=== PATIENT | female | born 1935 | race Caucasian/White ===

== ENCOUNTER 2020-02-02 23:31 | Inpatient (IN) | payer MEDICARE, OTHER, SELFPAY ==
[2020-02-02 23:33] VITALS: BP 106/78; PULSE 101; RESP 24; TEMP 37.1; O2SAT 93; BMI 34.4
--- NOTE | 2020-02-02 23:37 | XRR_ITS ---
PROCEDURE INFORMATION: Exam: XR Chest, 1 View Exam date and time: 02/02/2020 11:47 PM Age: 84 years old Clinical indication: Cough and shortness of breath; Chest pain; Additional info: Cp TECHNIQUE: Imaging protocol: XR of the chest Views: 1 view. COMPARISON: No relevant prior studies available. FINDINGS: Lungs: Pulmonary vasculature is engorged. Pleural space: Small right pleural effusion. Heart/Mediastinum: The left heart border and diaphragm are completely is obscured which may be due to consolidation and/or pleural effusion. Bones/joints: Unremarkable. XR/XR chest 1V portable [id number] IMPRESSION: 1. Left basilar opacity could be due to consolidation and/or pleural fluid. 2. Small right effusion. 3. Vascular congestion
--- NOTE | 2020-02-02 23:37 | ECG_ITS ---
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 Measurements Intervals [place] Rate: 97 P: 63 TN: 188 QRS: -39 QRSD: 138 T: 51 QT: 370 QTc: 471 Interpretive Statements SINUS RHYTHM LEFT AXIS DEVIATION [QRS AXIS < -30] INTRAVENTRICULAR CONDUCTION DELAY [130+ ms QRS DURATION] POSSIBLE ANTERIOR MYOCARDIAL INFARCTION , OF INDETERMINATE AGE [30 ms Q WAVE IN V3/V4, OR R < 0.2 mV IN V4] No previous ECG available for comparison Electronically Signed On 02-03-2020 20:27:52 CDT by Sonal Patrick M.D. [id number]
--- NOTE | 2020-02-02 23:38 | ED_ITS ---
HPI - Chest Pain General: Chief Complaint: Shortness of Breath/Dyspnea Stated Complaint: chest pain Time Seen by Provider: 02/02/20 23:36 Source: patient and EMS Limitations: no limitations History of Present Illness: HPI narrative: 84-year-old female is here [facility]. She has been complaining of a sharp chest pain all day long with some shortness of breath. Patient's pulse ox is 90% here on room air. Patient is tachypneic. States she feels improved currently and has minimal pain she rates 2 out of 10. She denies any cough or fever or any recent illness. Denies any vomiting or diarrhea. MD complaint: chest pain Associated symptoms: Reports dyspnea; Deny abdominal pain, fever(s), nausea or vomiting Review of Systems Const: Denies: fever(s), chills, body aches or change in appetite Eyes: Denies: blurry vision or eye discomfort ENMT: Denies: throat pain or dental pain Card: Reports: chest pain Resp: Reports: dyspnea GI: Denies: abdominal pain, nausea, vomiting or diarrhea : Denies: dysuria Musc: Denies: neck pain or back pain Skin/Breast: Denies: rash Neuro: Denies: headache(s) Psych: Denies: depression Yaya/Lymph: Denies: easy bruising All/Imm: Denies: urticaria PFSH ED PFSH: Medical History Adult onset hypothyroidism Blindness, 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 Diabetes mellitus with hyperglycemia, without long-term current use of insulin Essential hypertension Heart murmur Lives in assisted living facility Memory deficit Surgical History No significant past surgical history Family History Daughter Cancer Lung Social History Smoking and tobacco status: never smoked Housing: Assisted Living Facility Current gender identity: Female Physical Exam Const: COMMON NORMALS: no acute distress, patient oriented x3 and healthy appearing HENMT: COMMON NORMALS: normocephalic and atraumatic HEAD & SCALP: normocephalic and atraumatic Eye: COMMON NORMALS: Equal, round and reactive pupils present and EOMs intact bilaterally PUPIL: Yes Equal, round and reactive pupils present Neck/C-Spine: COMMON NORMALS: full ROM and supple Chest: COMMONS NORMALS: normal inspection of the chest and normal palpation of entire chest wall Resp: COMMON NORMALS: No retractions and No use of accessory muscles EFFORT & INSPECTION: Yes tachypneic AUSCULTATION: wheezes Cardio: COMMON NORMALS: regular rate, regular rhythm and No murmurs present (Cardio) RATE: regular rate RHYTHM: regular rhythm GI: COMMON NORMALS: Normal to inspection, nondistended, normoactive bowel sounds present, Soft to palpation, non-tender and no masses PALPATION: Yes Soft to palpation Extremity: COMMON NORMALS: normal to inspection and full ROM Neuro: COMMON NORMALS: patient oriented x3, moves all extremities and no focal motor deficits Psych: COMMON NORMALS: mental status grossly normal, Normal thought process present and cooperative THOUGHT PROCESS: Normal thought process present Skin: COMMON NORMALS: no rashes or lesions noted and no wounds GENERAL SKIN EXAM: no rashes or lesions noted Course Vital Signs: Vital signs: Vital Signs Temperature 98.7 F 02/02/20 23:33 Pulse Rate 88 02/02/20 23:59 Respiratory Rate 18 02/02/20 23:50 Blood Pressure 106/78 02/02/20 23:33 Pulse Oximetry 96 02/02/20 23:59 MDM - Chest Pain MDM Narrative: Medical decision making narrative: Margarita presents here with shortness of breath along with chest pain. Her chest pain is resolved and she has no signs of acute coronary syndrome. Patient does have pulmonary edema and pleural effusions on CT and elevated BNP. She has swelling in extremities with likely CHF exacerbation. I spoke to hospitalist and will admit. Patient has been stable while here. Lab Data: Labs: Lab Results 02/03/20 02/03/20 02/03/20 Range/Units 00:01 00:01 00:01 WBC 7.0 (4.0-10.0) 10^3/ uL RBC 3.77 L (4.1-5.3) 10^6/u L Hgb 11.4 L (11.5-15.3) g/dL Hct 35.0 L (37.0-47.0) % MCV 92.8 (81-99) fL MCH 30.2 (28.0-34.0) pg MCHC 32.6 (30.0-36.0) g/dL RDW 14.2 (12.1-15.1) % Plt Count 206 (130-400) 10^3/c mm MPV 10.8 H (7.4-10.4) fL Neut % (Auto) 61.7 % Lymph % (Auto) 26.0 % Churchill % (Auto) 7.7 % Eos % (Auto) 3.7 % Baso % (Auto) 0.6 % Neut # (Auto) 4.31 (1.8-7.7) 10^3/u L Lymph # (Auto) 1.8 (0.8-4.8) 10^3/u L Churchill # (Auto) 0.5 (0.2-0.9) 10^3/u L Eos # (Auto) 0.3 (0.0-0.8) 10^3/u L Baso # (Auto) 0.0 (0.0-0.1) 10^3/u L Nucleated RBC % (a uto) 0 % Nucleated RBCs # 0.0 /100WBC D-Dimer 1.26 H (0-0.59) ug/mIFE U Sodium 130 L (136-145) mmol/L Potassium 5.0 (3.5-5.1) mmol/L Chloride 100 (98-107) mmol/L Carbon Dioxide 19 L (22-29) mmol/L Anion Gap 16.0 (5-19) BUN 22 (8-23) mg/dL Creatinine 1.1 H (0.5-0.9) mg/dL GFR Calculation Not Reportable Glucose 133 H (65-115) mg/dL Calculated Osmolal ity 275 L (285-295) mOsm/k g Lactate (0.5-2.2) mmol/L Calcium 9.2 (8.5-10.5) mg/dL Total Bilirubin 0.5 (0.15-1.2) mg/dL AST 14 (0-32) U/L ALT 20 (0-33) U/L Alkaline Phosphata se 49 (35-105) IU/L Troponin T Baselin e (0-10) ng/L NT-Pro-B Natriuret Pep 1540 H (0-450) pg/mL Total Protein 6.7 (6.6-8.7) g/dL Albumin 3.6 (3.5-5.2) g/dL Globulin 3.1 (1.3-4.6) g/dL SARS-CoV-2 Ag (Rap id) (Negative) 02/03/20 02/03/20 02/03/20 Range/Units 00:01 00:01 00:01 WBC (4.0-10.0) 10^3/ uL RBC (4.1-5.3) 10^6/u L Hgb (11.5-15.3) g/dL Hct (37.0-47.0) % MCV (81-99) fL MCH (28.0-34.0) pg MCHC (30.0-36.0) g/dL RDW (12.1-15.1) % Plt Count (130-400) 10^3/c mm MPV (7.4-10.4) fL Neut % (Auto) % Lymph % (Auto) % Churchill % (Auto) % Eos % (Auto) % Baso % (Auto) % Neut # (Auto) (1.8-7.7) 10^3/u L Lymph # (Auto) (0.8-4.8) 10^3/u L Churchill # (Auto) (0.2-0.9) 10^3/u L Eos # (Auto) (0.0-0.8) 10^3/u L Baso # (Auto) (0.0-0.1) 10^3/u L Nucleated RBC % (a uto) % Nucleated RBCs # /100WBC D-Dimer (0-0.59) ug/mIFE U Sodium (136-145) mmol/L Potassium (3.5-5.1) mmol/L Chloride (98-107) mmol/L Carbon Dioxide (22-29) mmol/L Anion Gap (5-19) BUN (8-23) mg/dL Creatinine (0.5-0.9) mg/dL GFR Calculation Glucose (65-115) mg/dL Calculated Osmolal ity (285-295) mOsm/k g Lactate 0.9 (0.5-2.2) mmol/L Calcium (8.5-10.5) mg/dL Total Bilirubin (0.15-1.2) mg/dL AST (0-32) U/L ALT (0-33) U/L Alkaline Phosphata se (35-105) IU/L Troponin T Baselin e 14 H (0-10) ng/L NT-Pro-B Natriuret Pep (0-450) pg/mL Total Protein (6.6-8.7) g/dL Albumin (3.5-5.2) g/dL Globulin (1.3-4.6) g/dL SARS-CoV-2 Ag (Rap id) Negative (Negative) Imaging Data^: CT Chest: Radiologist's impression: [place] [address] CT Scan Report Signed Patient: Margarita Friedman Unit #: [id number] : 1935 Age/Sex: 84 / F ADM Date: 02/02/20 Loc: ER Room/Bed: Attending Dr: Ordering Provider/Ordering MD: Brionna Deluca MD Date of Service: 02/03/20 Procedure(s): CT angio chest PE protcl [id number] Accession Number(s): [id number] Report Number: [id number] PROCEDURE INFORMATION: Exam: CT Angiography Chest With Contrast Exam date and time: 02/03/2020 1:30 AM Age: 84 years old Clinical indication: Cough and shortness of breath; Chest pain; Type not specified; Additional info: SOB TECHNIQUE: Imaging protocol: Computed tomographic angiography of the chest with intravenous contrast. 3D rendering (Not supervised by radiologist): MIP and/or 3D reconstructed images were created by the technologist. Radiation optimization: All CT scans at this facility use at least one of these dose optimization techniques: automated exposure control; mA and/or kV adjustment per patient size (includes targeted exams where dose is matched to clinical indication); or iterative reconstruction. Contrast material: VISI; Contrast volume: 92 ml; Contrast route: INTRAVENOUS (IV); COMPARISON: CR XR chest 1V portable [id number] 02/02/2020 11:50 PM RADIATION DOSE METRICS: Total DLP (mGy-cm): 636.8 FINDINGS: Limitations: Motion on multiple slices. Pulmonary arteries: No central or segmental pulmonary embolus. Poor detail of the small pulmonary arteries. Aorta: Atherosclerosis. No thoracic aortic aneurysm or dissection. No aneurysm of the visualized abdominal aorta. Focal slight ectasia of the distal abdominal aorta. Thyroid: 2 small calcifications in the enlarged right lobe of the thyroid. Lungs: Collapse of the posterior wall of the trachea and right and left main bronchi on multiple slices. Areas of atelectasis in each posterior lung. Increased interstitial markings and patchy slight haziness in both lungs. Calcified granulomas in both lungs. Pleural space: [id number] right and mild left pleural effusions. No pneumothorax. Heart: Continued cardiomegaly. No pericardial effusion. 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 Mediastinal lipomatosis. Lymph nodes: Calcifications in some of the enlarged mediastinal and right hilar nodes and in some nonenlarged left hilar nodes. Gallbladder and bile ducts: Imaging of most of the abdomen showing a cholecystectomy. Pancreas: Fatty infiltration of the pancreas. Kidneys and ureters: Only a retroaortic left renal vein. Bones/joints: Old compression fractures. Degeneration of several discs. Increased kyphosis. Prominent geode in the right humeral head. Subchondral defects in the left glenoid. Soft tissues: Small calcifications in the breasts. CT/CT angio chest PE protcl [id number] IMPRESSION: 1. No large pulmonary embolus. Obscuration of small pulmonary arterial detail by motion artifacts. 2. Bilateral pleural effusions, lung findings likely representing pulmonary edema and cardiomegaly suggesting congestive failure. Areas of atelectasis in the lungs as well. Collapse of the posterior wall of the trachea and central bronchi on multiple slices. 3. Aberrant right subclavian artery extending posterior to the esophagus. Other findings detailed above. EKG Data^: EKG 1: Attestation: I personally reviewed and interpreted this EKG as follows: EKG interpretation date: 02/02/20 EKG interpretation time: 23:39 Interpretation: nsr no st or t wave abnormalities qrs 138 qtc 424 Discharge Plan Discharge Patient Disposition: Admitted As Inpatient Clinical Impression: Congestive heart failure Qualifiers: Heart failure type: unspecified Heart failure chronicity: acute on chronic Qualified Code(s): I50.9 - Heart failure, unspecified Condition: Stable Referrals: Adam Meléndez, [facility] [Primary Care Provider] - Coding Level of Care Code ED Meter Calibrator for Chg Fwd Exam Comprehensive
[2020-02-02] MEDS: albuterol 8 gm MDI 2 PUFF INHALATION (23:45)
[2020-02-02 23:50] VITALS: PULSE 86; RESP 18; O2SAT 93
[2020-02-02 23:59] VITALS: PULSE 88; O2SAT 96
[2020-02-03] VITALS (9 sets, daily range): BP systolic 90–113; BP diastolic 58–72; PULSE 82–101; RESP 18–30; TEMP 36.2–36.9; O2SAT 94–98
[2020-02-03] MEDS: dexamethasone 10 mg/mL INJ IVP (00:06)
[2020-02-03 00:20] LABS: Basophils % 0.6 %; Eosinophils # 0.3 10^3/uL (0.0-0.8); Eosinophils % 3.7 %; Hemoglobin 11.4 g/dL (11.5-15.3); Lymphocytes # 1.8 10^3/uL (0.8-4.8); Mean Corpuscular HGB Conc 32.6 g/dL (30.0-36.0); Mean Corpuscular Hemoglobin 30.2 pg (28.0-34.0); Mean Corpuscular Volume 92.8 fL (81-99); Mean Platelet Volume 10.8 fL (7.4-10.4); Monocytes # 0.5 10^3/uL (0.2-0.9); Monocytes % 7.7 %; Neutrophils # 4.31 10^3/uL (1.8-7.7); Neutrophils % 61.7 %; Nucleated Red Blood Cells % 0 %; Platelet Count 206 10^3/cmm (130-400); Red Blood Count 3.77 10^6/uL (4.1-5.3); Red Cell Distribution Width 14.2 % (12.1-15.1)
[2020-02-03 00:43] LABS: D Dimer 1.26 ug/mIFEU (0-0.59); Troponin(5th) Baseline 14 ng/L (0-10)
--- NOTE | 2020-02-03 00:45 | CTR_ITS ---
PROCEDURE INFORMATION: Exam: CT Angiography Chest With Contrast Exam date and time: 02/03/2020 1:30 AM Age: 84 years old Clinical indication: Cough and shortness of breath; Chest pain; Type not specified; Additional info: SOB TECHNIQUE: Imaging protocol: Computed tomographic angiography of the chest with intravenous contrast. 3D rendering (Not supervised by radiologist): MIP and/or 3D reconstructed images were created by the technologist. Radiation optimization: All CT scans at this facility use at least one of these dose optimization techniques: automated exposure control; mA and/or kV adjustment per patient size (includes targeted exams where dose is matched to clinical indication); or iterative reconstruction. Contrast material: VISI; Contrast volume: 92 ml; Contrast route: INTRAVENOUS (IV); COMPARISON: CR XR chest 1V portable [id number] 02/02/2020 11:50 PM RADIATION DOSE METRICS: Total DLP (mGy-cm): 636.8 FINDINGS: Limitations: Motion on multiple slices. Pulmonary arteries: No central or segmental pulmonary embolus. Poor detail of the small pulmonary arteries. Aorta: Atherosclerosis. No thoracic aortic aneurysm or dissection. No aneurysm of the visualized abdominal aorta. Focal slight ectasia of the distal abdominal aorta. Thyroid: 2 small calcifications in the enlarged right lobe of the thyroid. Lungs: Collapse of the posterior wall of the trachea and right and left main bronchi on multiple slices. Areas of atelectasis in each posterior lung. Increased interstitial markings and patchy slight haziness in both lungs. Calcified granulomas in both lungs. Pleural space: Nxzl-vw-mabywscx right and mild left pleural effusions. No pneumothorax. Heart: Continued cardiomegaly. No pericardial effusion. 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 Mediastinal lipomatosis. Lymph nodes: Calcifications in some of the enlarged mediastinal and right hilar nodes and in some nonenlarged left hilar nodes. Gallbladder and bile ducts: Imaging of most of the abdomen showing a cholecystectomy. Pancreas: Fatty infiltration of the pancreas. Kidneys and ureters: Only a retroaortic left renal vein. Bones/joints: Old compression fractures. Degeneration of several discs. Increased kyphosis. Prominent geode in the right humeral head. Subchondral defects in the left glenoid. Soft tissues: Small calcifications in the breasts. CT/CT angio chest PE protcl [id number] IMPRESSION: 1. No large pulmonary embolus. Obscuration of small pulmonary arterial detail by motion artifacts. 2. Bilateral pleural effusions, lung findings likely representing pulmonary edema and cardiomegaly suggesting congestive failure. Areas of atelectasis in the lungs as well. Collapse of the posterior wall of the trachea and central bronchi on multiple slices. 3. Aberrant right subclavian artery extending posterior to the esophagus. Other findings detailed above. Radiation Dose CTDIVOL = (mGy): DLP = 636.8 (mGy-cm)
[2020-02-03 00:51] LABS: Alanine Aminotransferase 20 U/L (0-33); Albumin Level 3.6 g/dL (3.5-5.2); Alkaline Phosphatase 49 IU/L (35-105); Aspartate Amino Transferase 14 U/L (0-32); Blood Urea Nitrogen 22 mg/dL (8-23); Calcium 9.2 mg/dL (8.5-10.5); Carbon Dioxide 19 mmol/L (22-29); Chloride 100 mmol/L (98-107); Globulin 3.1 g/dL (1.3-4.6); Glucose 133 mg/dL (65-115); NT Pro B Type Natriuretic Pept 1540 pg/mL (0-450); Osmolality Calculated 275 mOsm/kg (285-295); Sodium 130 mmol/L (136-145); Total Bilirubin 0.5 mg/dL (0.15-1.2); Total Protein 6.7 g/dL (6.6-8.7)
[2020-02-03 00:58] LABS: SARS Covid-2 Antigen Negative (Negative)
[2020-02-03 01:01] LABS: Lactate (Lactic Acid level) 0.9 mmol/L (0.5-2.2)
[2020-02-03] MEDS: iodixanol 320 mg/mL 100mL Btl IV (01:32)
--- NOTE | 2020-02-03 01:37 | ECG_ITS ---
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 Measurements Intervals [place] Rate: 100 P: 238 FL: 244 QRS: -45 QRSD: 134 T: 57 QT: 357 QTc: 460 Interpretive Statements SINUS TACHYCARDIA WITH FIRST DEGREE AV BLOCK LEFT AXIS DEVIATION [QRS AXIS < -30] INTRAVENTRICULAR CONDUCTION DELAY [130+ ms QRS DURATION] Compared to ECG 02/02/2020 23:39:13 First degree AV block now present Sinus rhythm no longer present Myocardial infarct finding no longer present Electronically Signed On 02-03-2020 20:36:32 CDT by Sonal Patrick M.D. [id number]
--- NOTE | 2020-02-03 02:42 | P.HP_ITS ---
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 Patient is stating that her symptoms started about a month ago, she was getting shortness of breath mainly on exertion, gradually her shortness of breath has worsened, now she experiencing orthopnea, PND. She has been noticing abdominal distention as well. Denying constipation, dysuria, chest pain, fever, nausea or vomiting. She is not a good historian. Diagnostics in the ER revealed CHF, D-dimer of 1.26, CTA rule out PE, chest imaging consistent with cardiomegaly, pleural effusion, pulmonary edema, at the time of evaluation, she was saturating well on 2 L nasal cannula, tachycardic, tachypneic normotensive, right leg swelling greater than left. EKG shows incomplete left bundle branch block, left axis deviation, sinus tachycardia I called [facility] to get the report, nursing staff is endorsing that she has been very tachycardic and tachypneic and complained about chest discomfort at the facility that so she was sent to the hospital. She walks on her own, eats adequately, independently on a daily basis, does not have previous diagnosis of CHF. No fever was noticed at the facility. Review of Systems Const: Reports: body aches, fatigue and malaise; Denies: fever(s) or chills Eyes: Denies: change in vision ENMT: Denies: throat pain Card: Reports: edema, swelling of feet/ankles, dyspnea on exertion and orthopnea; Denies: chest pain Resp: Reports: dyspnea and non-productive cough GI: Reports: early satiety and bloating; Denies: abdominal pain, nausea or vomiting : Denies: flank pain Musc: Denies: neck pain Skin/Breast: Denies: rash Neuro: Denies: headache(s) Psych: Denies: anxiety Endo: Denies: polyuria Yaya/Lymph: Denies: easy bruising All/Imm: Denies: urticaria Medications/Allergies Home Medications Medication Instructions Recorded Confirmed Last Taken Type acetaminophen 650 mg 650 mg PO BID PRN tab 05/06/19 12/02/19 Unknown History tablet,extended release guaifenesin 100 mg/5 mL oral liquid 200 mg PO Q4H PRN 05/06/19 12/02/19 Unknown History diaper,brief,adult,disposable #180 each 05/15/19 12/02/19 Unknown Rx lisinopril 5 mg tablet 5 mg PO DAILY tab 06/20/19 12/02/19 Unknown History spironolactone 25 mg tablet 25 mg PO DAILY tab 06/20/19 12/02/19 Unknown History lidocaine 4 % topical gel 1 applic TOPICAL TID PRN #113 gm 12/02/19 12/02/19 Unknown Rx liothyronine 5 mcg tablet 10 mcg PO DAILY #60 tab 12/02/19 12/02/19 Unknown Rx semaglutide 0.25 mg SUBCUT .weekly #1.5 ml 12/02/19 12/02/19 Unknown Rx carvedilol 6.25 mg tablet 6.25 mg PO Q12H tab 12/28/19 Unknown History Allergies Allergy/AdvReac Type Severity Reaction Status Date / Time No Known Allergies Allergy Unverified 05/06/19 13:41 PFSH Acute PFSH: Medical History (Updated 02/03/20 @ 03:37 by Umer Yu MD) Adult onset hypothyroidism Blindness, 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 Diabetes mellitus with hyperglycemia, without long-term current use of insulin Essential hypertension Heart murmur Incontinence Lives in assisted living facility Memory deficit Neuropathy due to herpes zoster Surgical History (Updated 02/03/20 @ 03:28 by Umer Yu MD) H/O tubal ligation No significant past surgical history Family History Daughter Cancer Lung Social History Smoking and tobacco status: never smoked Housing: Assisted Living Facility Current gender identity: Female Vitals/I&O/Wt Last Vital Signs Temp 98.7 F 02/02/20 23:33 Pulse 88 02/02/20 23:59 Resp 18 02/02/20 23:50 BP 106/78 02/02/20 23:33 Pulse Ox 96 02/02/20 23:59 Weight last 48 hrs Weight 82.554 kg Physical Exam Narrative: EXAM NARRATIVE: This is a pleasant elderly female Morbidly obese currently tachypneic, tachycardic, normotensive Saturating well on room air, Able to tell me above-mentioned HPI Awake, alert, oriented to herself S1, S2 sinus tachycardia active signs of CHF, systolic murmur hard to appreciate due to increased work of breathing Abdominal distention, obesity, bowel sounds present, nontender, soft, no signs of peritonitis Bilateral diminished breath sounds mild crackles at the bases Legally blind in left eye Lower extremity edema 1+ right greater than left No gangrene or ulcer Extremely dry skin Data : 02/03/20 00:01 02/03/20 00:01 Micro: Microbiology 02/03/20 01:05 Blood Culture - Preliminary Blood SPECIMEN COLLECTED 02/03/20 00:40 Blood Culture - Preliminary Blood SPECIMEN COLLECTED A&P Assessment and plan (1) Congestive heart failure: Status: Acute Qualifiers: Heart failure chronicity: acute on chronic Heart failure type: unspecified Qualified Code(s): I50.9 - Heart failure, unspecified (2) Memory deficit: Status: Chronic (3) Essential hypertension: Status: Chronic (4) Adult onset hypothyroidism: Status: Chronic (5) Hyponatremia: Status: Acute Additional A&P Information New onset CHF I do not see any previous diagnosis of heart failure in her records Symptoms such as orthopnea, PND along high BNP, CT chest to rule out PE positive approved fusion and cardiomegaly Echo in the morning, check TSH Since she is na?ve to Lasix I would use 20 mg IV Lasix for now BiPAP to decrease work of breathing, considering her morbid obesity, I would recommend sleep study which could have contributed towards CHF exacerbation, she does not use oxygen or CPAP at the facility Hyponatremia Fluid overloaded state, most likely cause is hypervolemia Anticipate improvement with IV Lasix No acute neurological signs Essential hypertension: Currently normotensive Adult onset hypothyroidism, will check TSH, continue current regimen of li othyronine Acute on chronic kidney disease, Baseline creatinine seems to be normal, this seems cardiorenal in nature Monitor urine output and BMP Hold nephrotoxic agent Type 2 diabetes: Moderate sliding scale, Check A1c level Goals of care: Full code DVT prophylaxis Heparin Consistent carb cardiac diet Attestations Medical Necessity Statement*: During stay in the hospital to be less than 2 midnights need initiation of Lasix for acute CHF Time Spent in Patient Care: (>than 50% of time spent in counselling and/or direct pt care on unit) . 50mins Coding Level of Care Code Acute Staff Technologist for Candice Ibarra Diagnoses Congestive heart failure I50.9 Heart failure chronicity: acute on chronic Heart failure type: unspecified Memory deficit R41.3 Essential hypertension I10 Adult onset hypothyroidism E03.8 Hyponatremia E87.1
--- NOTE | 2020-02-03 02:54 | USCV_ITS ---
Elder Margarita Age: 84 Gender: F : 1935 Exam Date: 02/03/2020 06:03 Ordering Phys: Umer Yu MD Technologist: Kalyn Monterroso [place] [facility] [place]: CHF BP: 106 / 65 HR: 89 Rhythm: Sinus Technical Quality: Technically difficult study MEASUREMENTS (Male / Female) Normal Values 2D ECHO LV Diastolic Diameter PLAX 4.3 cm 4.2 - 5.9 / 3.9 - 5.3 cm LV Systolic Diameter PLAX 3.5 cm LV Chamber Size 3.0 cm IVS Diastolic Thickness 1.4 cm 0.6 - 1.0 / 0.6 - 0.9 cm IVS Systolic Thickness 1.5 cm LVPW Diastolic Thickness 1.1 cm 0.6 - 1.0 / 0.6 - 0.9 cm LVPW Systolic Thickness 1.8 cm RV Chamber Size 2.2 cm LVOT Diameter 2.1 cm LV Ejection Fraction 2D Teich 40.0 % LV Ejection Fraction MOD 2C 39.4 % LV Ejection Fraction 2C AL 39.9 % LA Diameter 4.0 cm LA Width 2.9 cm LA Height 4.0 cm RA Width 3.3 cm RA Height 3.8 cm Aorta at Sinotubular Diameter 2.4 cm M-MODE LV Diastolic Diameter MM 5.6 cm 4.2 - 5.9 / 3.9 - 5.3 cm LV Systolic Diameter MM 4.3 cm LV Ejection Fraction MM Teich 45.6 % IVS Diastolic Thickness MM 1.4 cm 0.6 - 1.0 / 0.6 - 0.9 cm IVS Systolic Thickness MM 1.4 cm LVPW Diastolic Thickness MM 1.1 cm 0.6 - 1.0 / 0.6 - 0.9 cm LVPW Systolic Thickness MM 1.4 cm RV Diastolic Diameter MM 1.6 cm Aortic Annulus Diameter 2.2 cm LA Ao Ratio MM 2.0 DOPPLER AV Peak Velocity 335.0 cm/s LVOT Peak Velocity 66.5 cm/s AV Area Cont Eq vti 0.8 cm squared AV Area Cont Eq pk 0.7 cm squared MV Area PHT 10.5 cm squared Mitral E to A Ratio 1.3 MV E' Velocity 52.0 cm/s Mitral E to MV E' Ratio 11.4 Mitral E to LV E' Lateral Ratio 12.3 Mitral E to LV E' Septal Ratio 10.6 TR Peak Velocity 226.8 cm/s TR Peak Gradient 20.6 mmHg TR Mean Velocity 179.8 cm/s TR Mean Gradient 15.1 mmHg TR Velocity Time Integral 74.0 cm TV Peak E Velocity 49.0 cm/s Right Atrial Pressure 5.0 mmHg Pulmonary Artery Systolic Pressu 25.6 mmHg PV Peak Velocity 66.0 cm/s RV Acceleration Time 0.1 s RV Ejection Time 0.3 s RV AcT/ET 0.4 FINDINGS Left Ventricle Moderately increased left ventricular cavity size. Moderately decreased left ventricular systolic function. Left ventricular ejection fraction is estimated at 30 %. Global hypokinesis more pronounced in septal wall. Abnormal septal motion consistent with conduction abnormality. Grade II diastolic dysfunction, moderately elevated filling pressures. Right Ventricle Normal right ventricular size and systolic function, RVSP 25.6 mmHg. Right Atrium Right atrium not well visualized. Left Atrium Mildly increased left atrial size. Mitral Valve Mildly thickened mitral valve. Restricted movement of posterior mitral valve leaflet. No mitral valve stenosis. Moderate mitral valve regurgitation. Aortic Valve Aortic valve not well visualized. Possibly moderate to severe aortic valve stenosis, peak velocity 3.4 m/s, peak gradient 45 mmHg, mean gradient 26.4 mmHg, GORAN 0.76 cm squared. Tricuspid Valve Tricuspid valve not well visualized. Pulmonic Valve Pulmonic valve not well visualized. Trace pulmonary valve regurgitation. Pericardium Trivial-small pericardial effusion. Left pleural effusion. Aorta Normal size aortic root and proximal ascending aorta. CONCLUSIONS 1. This is a technically difficult study. 2. Moderately increased left ventricular cavity size. Moderately decreased left ventricular systolic function. Left ventricular ejection fraction is estimated at 30 %. Global hypokinesis more pronounced in septal wall. 3. Possibly moderate to severe aortic valve stenosis, peak velocity 3.4 m/s, peak gradient 45 mmHg, mean gradient 26.4 mmHg, GORAN 0.76 cm squared. 4. No prior similar studies to compare. Cheli Frank MD (Electronically Signed) Final Date: 03 February 2020 12:38 S
[2020-02-03] MEDS: FUROsemide 10 mg/mL SDV 4mL 40 MG IVP (03:01)
--- NOTE | 2020-02-03 03:16 | PC.NURSE ---
Patient received from ED via stretcher. Patient transferred to bed x's 3 assist. Patient able to ambulated to bathroom with standby assist. No gait disturbance observed. Patient stated, I am feeling some better now. Upon returning to bed, patient c/o increased SOB with accessory muscle use. Patient able to get in bed with minimal contact assistance. Patient remained on left lateral side for comfort and ease of breathing per patient. Admission completed as documented.
[2020-02-03] MEDS: enoxaparin 40 mg/0.4 mL Syringe SUBCUT (03:23)
--- NOTE | 2020-02-03 03:42 | USCV_ITS ---
Margarita Friedman Age: 84 Gender: F : 1935 Exam Date: 02/03/2020 06:37 Ordering Phys: Umer Yu MD Technologist: Kalyn Monterroso Exam Location: [facility] [place] Indication: DVT HISTORY: Swollen Legs PROCEDURES: Venous duplex imaging was performed in bilateral lower extremities. The following venous structures were evaluated: common femoral vein, profunda vein, proximal portion of the greater saphenous vein, superficial femoral vein, and the popliteal vein. Serial compression, augmentation maneuvers, and spectral Doppler flow evaluation were performed. FINDINGS: No DVT seen in any vessel examined CONCLUSIONS No evidence of right lower extremity DVT. No evidence of left lower extremity DVT. Kaden Archer MD (Electronically Signed) Final Date: 03 February 2020 10:24 S
[2020-02-03 04:11] LABS: Estmated Average Glucose 105; Hemoglobin A1C 5.3 % (4.0-6.0)
[2020-02-03 04:14] LABS: Troponin 5 2HR 38.33 ng/L (0-10)
[2020-02-03 04:17] LABS: Anion Gap 13.3 (5-19); Blood Urea Nitrogen 19 mg/dL (8-23); Calcium 8.9 mg/dL (8.5-10.5); Carbon Dioxide 26 mmol/L (22-29); Chloride 104 mmol/L (98-107); Glucose 96 mg/dL (65-115); Osmolality Calculated 290 mOsm/kg (285-295); Potassium 4.3 mmol/L (3.5-5.1); Sodium 139 mmol/L (136-145)
[2020-02-03 04:43] LABS: Troponin 5 2HR Delta 24.33 ABS# (0-10)
--- NOTE | 2020-02-03 05:37 | ECG_ITS ---
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 Measurements Intervals [place] Rate: 89 P: 7 ND: 200 QRS: -36 QRSD: 138 T: 14 QT: 402 QTc: 491 Interpretive Statements SINUS RHYTHM MARKED LEFT AXIS DEVIATION [QRS AXIS < -30] INTRAVENTRICULAR CONDUCTION DELAY [130+ ms QRS DURATION] Compared to ECG 02/03/2020 01:44:18 Sinus tachycardia no longer present First degree AV block no longer present Electronically Signed On 02-03-2020 20:37:32 CDT by Sonal Patrick M.D. [id number]
[2020-02-03] MEDS: heparin 5,000 unit/mL INJ 1 mL 5000 UNIT SUBCUT ×2 (05:42→12:40)
[2020-02-03 06:29] LABS: Glucose Point of Care 171 mg/dL (70-110)
[2020-02-03 06:42] LABS: Troponin 5 6HR 16.79 ng/L (0-10); Troponin 5 6HR Delta 2.79 ng/L (0-12)
[2020-02-03] MEDS: liothyronine 5 mcg Tablet 10 MCG PO (08:57)
[2020-02-03] MEDS: carvedilol 6.25 mg Tablet PO ×2 (08:58→17:36)
--- NOTE | 2020-02-03 09:11 | PC.CHAP ---
Pastoral Care Encounter/Spiritual Assessment Type of Contact [] Declined pushcart peddler visit [] Patient/Family/Request visit [] Outpatient visit [] Follow-up visit [] Physician referral [] Code/Alert [x] Routine visit [] Staff referral [] Actively dying [] Patient sleeping [] Family support [] [] Out of room [] Palliative care [] [] Receiving care in room [] Pre-surgical visit [] Trauma [] Long length of stay [] ICU visit [] Other: Relational/Emotional Strength [] Patient feels connected with others/family/visitors/staff [] Distress [] Loneliness/isolation [] Abandonment Spirituality of Patient [] Person of Jennifer [] Attends Amish of their Jennifer [] Believes in Prayer [] Reads Bible or Taoism materials [] There are Spiritual issues to be addressed 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 Interventions [x] Prayer [x] Active listening [x] Non-anxious presence [x] Spiritual/emotional support [] Crisis/trauma care [] Spiritual counseling [] Bereavement support [] Provided bereavement packet [] Provided Bible/devotional materials [] Provided toy/stuffed animal, coloring book to patient or family member [] Provided Communion [] Anointing/[place] [] Salvation [x] Completed spiritual assessment [] Other: Impact on Illness or Injury [] Angry [] Fearful [] Anxious [] Often cries [] Exhaustion [] Unable to work [] Unable to attend hinduism [] Unable to walk/stand [] Unable to read [] Unable to drive [] Unable to eat/drink [] Unable to sleep [] Unable to be with family [] Patient intubated [] Other: Summary patient enjoying breakfast.. seems to feel better Time spent with patient 5 min
--- NOTE | 2020-02-03 10:15 | PM.PN ---
Subjective Subjective: Interval history: Patient reports that prior to admission she experienced left-sided chest pain which is now resolved and she is pain-free. Reports feeling better but continues to have minimal shortness of breath. Her exam showed clear lungs and no lower extremity edema. Vitals/I&O/Wt Last Vital Signs Temp 97.6 F 02/03/20 08:00 Pulse 86 02/03/20 08:00 Resp 20 H 02/03/20 08:00 BP 110/66 02/03/20 08:00 Pulse Ox 96 02/03/20 08:00 Weight last 48 hrs Weight 100.879 kg Weight 82.554 kg Physical Exam Const: COMMON NORMALS: no acute distress and patient oriented x3 Resp: COMMON NORMALS: normal respiratory effort and clear to auscultation bilaterally AUSCULTATION: clear to auscultation bilaterally Cardio: COMMON NORMALS: regular rate, regular rhythm and S2 normal heart sound present RATE: regular rate RHYTHM: regular rhythm HEART SOUNDS: S2 normal heart sound present OTHER: No lower extremity edema GI: COMMON NORMALS: Normal to inspection, nondistended, normoactive bowel sounds present, Soft to palpation and non-tender PALPATION: Yes Soft to palpation Neuro: COMMON NORMALS: patient oriented x3 and no focal motor deficits Data : 02/03/20 00:01 02/03/20 03:45 Micro: Microbiology 02/03/20 01:05 Blood Culture - Preliminary Blood SPECIMEN COLLECTED 02/03/20 00:40 Blood Culture - Preliminary Blood SPECIMEN COLLECTED A&P Assessment and plan (1) Congestive heart failure: Status: Acute Qualifiers: Heart failure chronicity: acute on chronic Heart failure type: unspecified Qualified Code(s): I50.9 - Heart failure, unspecified (2) Memory deficit: Status: Chronic (3) Essential hypertension: Status: Chronic (4) Adult onset hypothyroidism: Status: Chronic (5) Hyponatremia: Status: Acute (6) Non-ST elevation VT (NSTEMI): Present on admission. Status: Acute Additional A&P Information New onset CHF I do not see any previous diagnosis of heart failure in her records Symptoms such as orthopnea, PND along high BNP, CT chest to rule out PE positive approved fusion and cardiomegaly Echo in the morning, check TSH Since she is na?ve to Lasix I would use 20 mg IV Lasix for now BiPAP to decrease work of breathing, considering her morbid obesity, I would recommend sleep study which could have contributed towards CHF exacerbation, she does not use oxygen or CPAP at the facility Hyponatremia Fluid overloaded state, most likely cause is hypervolemia Anticipate improvement with IV Lasix No acute neurological signs Essential hypertension: Currently normotensive Adult onset hypothyroidism, will check TSH, continue current regimen of liothyronine Acute on chronic kidney disease, Baseline creatinine seems to be normal, this seems cardiorenal in nature Monitor urine output and BMP Hold nephrotoxic agent Type 2 diabetes: Moderate sliding scale, Check A1c level Acute kidney injury, appears to be prerenal. Not present on admission. Goals of care: Full code DVT prophylaxis Heparin Consistent carb cardiac diet PLAN: Discussed case with Dr. Frank who will see patient in consultation. Obtain UA to rule out UTI and obtain renal ultrasound. Awaiting echocardiogram. Patient appears to be getting euvolemic therefore will consider discontinuing Lasix. Attestations Medical Necessity Statement*: Patient with non-ST ovation VT requires close inpatient monitoring, evaluation and treatment. Coding Level of Care Code Acute Aircraft Avionics Technician for Candice Ibarra Diagnoses Congestive heart failure I50.9 Heart failure chronicity: acute on chronic Heart failure type: unspecified Memory deficit R41.3 Essential hypertension I10 Adult onset hypothyroidism E03.8 Hyponatremia E87.1 Non-ST elevation VT (NSTEMI) I21.4
--- NOTE | 2020-02-03 10:23 | USR_ITS ---
PROCEDURE INFORMATION: Exam: US Retroperitoneal; Complete; Kidneys and Bladder Exam date and time: 02/03/2020 5:06 PM Age: 84 years old Clinical indication: Screening exam; Other: John; Additional info: Acute kidney injury TECHNIQUE: Imaging protocol: Real-time ultrasound of the retroperitoneum with image documentation. Complete exam focused on the kidneys and bladder. COMPARISON: No relevant prior studies available. FINDINGS: Right kidney: Normal. No stones. No hydronephrosis. Left kidney: Normal. No stones. No hydronephrosis. Bladder: Unremarkable. US/US renal BI* [id number] IMPRESSION: Unremarkable kidneys and bladder.
--- NOTE | 2020-02-03 10:35 | PM.CONSULT ---
Providers/Reason For Consult Consulting Physican/Specialty*: Dr. 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 She resides at [facility]. History was obtained from the patient's granddaughter as well as from chart. 2 weeks back patient had episode of chest discomfort was retrosternal in location after she had her dinner. She also complains of worsening shortness of breath for the last 2 weeks. Last night she started having chest pain along with shortness of breath and was brought to the ER for further evaluation. She is not a great historian. On arrival a CT scan of her chest was done which ruled out PE but did show pleural effusion and pulmonary congestion. Venous duplex did not show any lower extremity DVT. EKG showed sinus rhythm, left axis deviation and left bundle branch block. Baseline troponin T was 14 that increased to 38 and decreased at 6 hours to 16. She denies having any chest pain since being in the hospital. Her proBNP was elevated at 1540. TSH was 4.6. Her rapid antigen test for Covid was negative. She denies having any fever or chills. We do not have any prior imaging studies in our system. Review of Systems General: Reports: 10 or more systems reviewed and unremarkable except in HPI and below Const: Denies: fever(s) or chills Eyes: Reports: other (Blindness) ENMT: Denies: epistaxis Card: Reports: chest pain, swelling of feet/ankles and dyspnea on exertion; Denies: irregular heart rhythm Resp: Reports: dyspnea; Denies: productive cough GI: Reports: diarrhea; Denies: abdominal pain, nausea, vomiting or hematochezia : Denies: hematuria Musc: Reports: extremity swelling Skin/Breast: Denies: rash Neuro: Denies: headache(s) or weakness in extremities Psych: Denies: anxiety or depression Yaya/Lymph: Denies: easy bruising or easy bleeding Meds/Allergies Home Medications and Allergies Home Medications Medication Instructions Recorded Confirmed Last Taken Type acetaminophen 650 mg 650 mg PO BID PRN tab 05/06/19 02/03/20 Unknown History tablet,extended release guaifenesin 100 mg/5 mL oral liquid 200 mg PO Q4H PRN 05/06/19 02/03/20 Unknown History diaper,brief,adult,disposable #180 each 05/15/19 12/02/19 Unknown Rx lisinopril 5 mg tablet 5 mg PO 0800 tab 06/20/19 02/03/20 02/02/20 08:00 History spironolactone 25 mg tablet 25 mg PO DAILY tab 06/20/19 02/03/20 02/02/20 08:00 History liothyronine 5 mcg tablet 10 mcg PO DAILY #60 tab 12/02/19 02/03/20 02/02/20 06:00 Rx semaglutide 0.25 mg SUBCUT .weekly #1.5 ml 12/02/19 02/03/20 02/02/20 08:00 Rx carvedilol 6.25 mg tablet 6.25 mg PO tab 12/28/19 02/03/20 02/02/20 20:00 History Allergies Allergy/AdvReac Type Severity Reaction Status Date / Time No Known Allergies Allergy Unverified 05/06/19 13:41 Current Medications Current Medications Generic Name Dose Route Start Last Admin Trade Name Freq PRN Reason Stop Dose Admin Carvedilol 6.25 mg 02/03/20 09:00 02/03/20 08:58 Coreg PO 6.25 mg BID JENNIFER Administration Furosemide 20 mg 02/03/20 03:00 02/03/20 03:01 Lasix IVP Not Given Q24H JENNIFER Heparin Sodium (Beef Lung) 5,000 unit 02/03/20 05:00 02/03/20 05:42 Heparin SUBCUT 5,000 unit Q8H JENNIFER Administration Insulin Aspart 0 unit 02/03/20 08:00 02/03/20 07:45 Novolog SUBCUT 4 unit WM&BEDTIME JENNIFER Administration Protocol Liothyronine Sodium 10 mcg 02/03/20 09:00 02/03/20 08:57 Cytomel PO 10 mcg DAILY JENNIFER Administration PFSH Acute PFSH: Medical History Adult onset hypothyroidism Blindness, 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 Diabetes mellitus with hyperglycemia, without long-term current use of insulin Essential hypertension Heart murmur Incontinence Lives in assisted living facility Memory deficit Neuropathy due to herpes zoster Surgical History H/O tubal ligation No significant past surgical history Family History Daughter Cancer Lung Social History Smoking and tobacco status: never smoked Housing: Assisted Living Facility Current gender identity: Female Vitals/I&O/Wt Last Vital Signs Temp 97.6 F 02/03/20 08:00 Pulse 86 02/03/20 08:00 Resp 20 H 02/03/20 08:00 BP 110/66 02/03/20 08:00 Pulse Ox 96 02/03/20 08:00 Weight last 48 hrs Weight 222 lb 6.4 oz Weight 182 lb Physical Exam Narrative: EXAM NARRATIVE: GENERAL: Obese lady sitting in chair in no acute distress HEENT: Extraocular movement intact. No pallor or icterus. NECK: central trachea, no JVD, appreciated. No carotid bruit. CARDIOVASCULAR SYSTEM: S1-S2 regular. No S3 or S4 present. Grade 2/6 SM+ in URSB no rubs or gallops. RESPIRATORY SYSTEM: Decreased bilateral air entry specially in the lower lung valentino posteriorly. No wheezes rhonchi or rubs heard. No use of accessory muscles. ABDOMEN: Soft, nontender and nondistended. Normal bowel sounds present. EXTREMITIES: No cyanosis. Trace to 1+ edema. No signs of chronic venous insufficiency. ENVIRONMENT ARTIST: Patient is alert oriented ?3. SKIN: Normal turgor and temperature. No breakdown, rash or nail changes noted. PSYCH: Normal insight and judgment. Data Micro: Micro: Microbiology 02/03/20 01:05 Blood Culture - Pr eliminary Blood SPECIMEN [facility] 02/03/20 00:40 Blood Culture - Pr eliminary Blood SPECIMEN [facility] A&P Assessment and plan (1) Non-ST elevation MO (NSTEMI): Patient complains of chest pain on and off with shortness of breath with exertion over the last 2 weeks. She was able to tell me of at least 2 episodes of chest pain. Of note she is not a great historian and her EKG shows left bundle branch block (no priors available for comparison). -Baseline troponin T on arrival of 14 that increased to 38. -Her echocardiogram showed left ventricle ejection fraction of 30%, global hypokinesis more pronounced in the septum. Abnormal septal motion as well as at least moderate to severe aortic stenosis. -Started on aspirin and Lovenox. -Creatinine at 1.6 this morning. Continue to monitor renal function and diurese her prior to proceeding with coronary angiogram. -This was discussed with patient and her granddaughter and they are agreeable. The risk of developing renal failure as well as risk of heart attack, stroke or with the procedure was discussed with the patient and they are willing to proceed with the same. -Plan to proceed with procedure on Thursday based on her renal function and clinical status. Status: Acute (2) Congestive heart failure: Newly diagnosed congestive heart failure with ejection Fraction of 30%. -Continue Coreg and Lasix. Status: Acute Qualifiers: Heart failure chronicity: acute on chronic Heart failure type: unspecified Qualified Code(s): I50.9 - Heart failure, unspecified (3) Diabetes mellitus with hyperglycemia, without long-term current use of insulin: Status: Chronic Qualifiers: Diabetes mellitus type: type 2 Qualified Code(s): E11.65 - Type 2 diabetes mellitus with hyperglycemia (4) Essential hypertension: Status: Chronic Additional A&P Information LBBB: No prior EKG available for comparison. Moderate to severe aortic stenosis : Valve visually appears to be more in severe category. The study was technically difficult but peak velocity was 3.4 m/second, mean gradient of about 29 mmHg dimensionless valve index of 0. 21. JAVIER Hypothyroidism Morbid obesity Thank you for allowing me to participate in patient's care. Please feel free to call with questions or concerns. Consult Attestations Medical Necessity Statement: Needs hospital stay for non-ST elevation MO and congestive heart failure Coding Level of Care Code New Pt Acute Director Summer Sessions for Chg Fwd Patient Type New History Comprehensive Exam Comprehensive Medical Decision Making High Complexity Diagnoses Non-ST elevation MO (NSTEMI) I21.4 Congestive heart failure I50.9 Heart failure chronicity: acute on chronic Heart failure type: unspecified Diabetes mellitus with hyperglycemia, without long-term current use of insulin E11.65 Diabetes mellitus type: type 2 Essential hypertension I10 Time Spent (min) 45
--- NOTE | 2020-02-03 10:48 | ECG_ITS ---
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 Measurements Intervals [place] Rate: 86 P: 20 CO: 207 QRS: -34 QRSD: 145 T: 28 QT: 400 QTc: 479 Interpretive Statements SINUS RHYTHM MARKED LEFT AXIS DEVIATION [QRS AXIS < -30] LEFT BUNDLE BRANCH BLOCK [120+ ms QRS DURATION, 80+ ms Q/S IN V1/V2, 85+ ms R IN I/aVL/V5/V6] Compared to ECG 02/03/2020 08:45:16 Left bundle-branch block now present Intraventricular conduction delay no longer present Electronically Signed On 02-03-2020 20:37:39 CDT by Sonal Patrick M.D. [id number]
[2020-02-03 11:11] LABS: Glucose Point of Care 174 mg/dL (70-110)
[2020-02-03 17:17] LABS: Glucose Point of Care 147 mg/dL (70-110)
[2020-02-03] MEDS: FUROsemide 10 mg/mL SDV 2mL 20 MG IVP (17:34)
--- NOTE | 2020-02-03 18:59 | PC.NURSE ---
Shift Summary uneventful shift. Patient spent most of day in chair, tolerated well. Patient assisted to bathroom, accurate I&O not obtained due to occasional incontinence. No needs identified at this time. Nurse to continue to monitor.
[2020-02-03] MEDS: aspirin 325 mg Tablet PO (19:26)
[2020-02-03] MEDS: enoxaparin 100 mg/mL Syringe SUBCUT (19:26)
[2020-02-03] MEDS: atorvastatin 40 mg Tablet 20 MG PO (19:51)
[2020-02-03 20:09] LABS: Glucose Point of Care 170 mg/dL (70-110)
[2020-02-03 20:56] LABS: Bilirubin Urine Neg (Negative); Blood Urine Neg (Negative); Glucose Urine UA Norm (Normal); Ketones Urine Negative (Negative); Leukocyte Esterase Urine Negative (Negative); Nitrate Urine Negative (Negative); Protein Urine Neg (Negative); Specific Gravity, Urine 1.015 (1.005-1.030); Urine Appearance Clear (CLEAR); Urine Color Straw (Yellow); Urobilinogen Urine Norm (Negative); pH Urine 5 (5-7)
[2020-02-03 21:00] LABS: Add Urine Culture? No; Bacteria Urine TRACE /hpf; Mucus Urine TRACE /hpf; Squamous Epithelial Cell Urine 0-4 /hpf (0-5)
[2020-02-04] VITALS (56 sets, daily range): BP systolic 90–101; BP diastolic 52–76; PULSE 66–103; RESP 12–40; TEMP 36.4–36.7; O2SAT 96–98
[2020-02-04] MEDS: FUROsemide 10 mg/mL SDV 2mL 20 MG IVP (02:23)
[2020-02-04] MEDS: enoxaparin 100 mg/mL Syringe SUBCUT ×2 (05:09→17:08)
[2020-02-04 05:43] LABS: Basophils % 0.1 %; Hematocrit 34.8 % (37.0-47.0); Hemoglobin 11.4 g/dL (11.5-15.3); Lymphocytes # 1.4 10^3/uL (0.8-4.8); Lymphocytes % 8.6 %; Mean Corpuscular HGB Conc 32.8 g/dL (30.0-36.0); Mean Corpuscular Hemoglobin 30.2 pg (28.0-34.0); Mean Corpuscular Volume 92.3 fL (81-99); Mean Platelet Volume 11.1 fL (7.4-10.4); Monocytes # 0.8 10^3/uL (0.2-0.9); Monocytes % 4.8 %; Neutrophils # 14.09 10^3/uL (1.8-7.7); Neutrophils % 85.8 %; Nucleated Red Blood Cells % 0 %; Platelet Count 223 10^3/cmm (130-400); Red Blood Count 3.77 10^6/uL (4.1-5.3); Red Cell Distribution Width 13.8 % (12.1-15.1); White Blood Count 16.4 10^3/uL (4.0-10.0)
[2020-02-04 06:07] LABS: Glucose Point of Care 150 mg/dL (70-110)
[2020-02-04 06:25] LABS: Alanine Aminotransferase 18 U/L (0-33); Albumin Level 3.7 g/dL (3.5-5.2); Alkaline Phosphatase 49 IU/L (35-105); Anion Gap 18.7 (5-19); Aspartate Amino Transferase 13 U/L (0-32); Blood Urea Nitrogen 37 mg/dL (8-23); Calcium 9.7 mg/dL (8.5-10.5); Carbon Dioxide 20 mmol/L (22-29); Chloride 96 mmol/L (98-107); Globulin 3.5 g/dL (1.3-4.6); Glucose 145 mg/dL (65-115); Magnesium 2.1 mg/dL (1.7-2.3); Osmolality Calculated 281 mOsm/kg (285-295); Potassium 4.7 mmol/L (3.5-5.1); Sodium 130 mmol/L (136-145); Total Bilirubin 0.4 mg/dL (0.15-1.2); Total Protein 7.2 g/dL (6.6-8.7)
[2020-02-04 06:28] LABS: Chol HDL Ratio 3.18 mg/dL (0.0-4.40); Cholesterol 143 mg/dL (0-200); HDL Cholesterol 45 mg/dL (60-100); LDL Cholesterol Calculated 83 mg/dL (50-129); LDL HDL Ratio 1.84 RATIO (0.00-3.22); Triglycerides 73 mg/dL (0-150)
--- NOTE | 2020-02-04 08:51 | P.PN_ITS ---
Subjective Subjective: Interval history: Patient denies having any chest pain last night. Not sure if urine output has been documented properly. UO 700 ml . No events on telemetry Medications: Reviewed: Yes Medication Review Details: Current Medications Aspirin (Aspirin) 325 mg PO DAILY [facility] Last Admin: 02/03/20 19:26 Dose: 325 mg Documented by: Atorvastatin Calcium (Lipitor) 20 mg PO BEDTIME [facility] Last Admin: 02/03/20 19:51 Dose: 20 mg Documented by: Carvedilol (Coreg) 6.25 mg PO BID [facility] Last Admin: 02/03/20 17:36 Dose: 6.25 mg Documented by: Dextrose (D50w) 25 ml IVP ONCE PRN; Protocol PRN Reason: hypoglycemia protocol Dextrose (D50w) 50 ml IVP PRN PRN; Protocol PRN Reason: hypoglycemia protocol Enoxaparin Sodium (Lovenox) 100 mg 1 mg/kg (100 mg) SUBCUT Q12H [facility] Last Admin: 02/04/20 05:09 Dose: 100 mg Documented by: Furosemide (Lasix) 20 mg IVP Q24H [facility] Last Admin: 02/04/20 02:23 Dose: 20 mg Documented by: Glucagon (Glucagen) 1 mg IM ONCE PRN; Protocol PRN Reason: Adult Acute Hypoglycemia Prot. Dextrose (D5w) 500 mls @ 100 mls/hr IV ONCE PRN; Protocol PRN Reason: Adult Acute Hypoglycemia Prot Insulin Aspart (Novolog) 0 unit SUBCUT WM&BEDTIME [facility]; Protocol Last Admin: 02/03/20 20:06 Dose: 4 unit Documented by: Liothyronine Sodium (Cytomel) 10 mcg PO DAILY [facility] Last Admin: 02/03/20 08:57 Dose: 10 mcg Documented by: Nitroglycerin (Nitrostat) 0.4 mg SUBLINGUAL Q5M PRN PRN Reason: CHEST PAIN Vitals/I&O/Wt Last Vital Signs Temp 98.0 F 02/04/20 07:59 Pulse 75 02/04/20 07:59 Resp 19 H 02/04/20 07:59 BP 98/66 02/04/20 07:59 Pulse Ox 96 02/04/20 07:59 02/03/20 02/04/20 02/04/20 22:59 06:59 14:59 Intake Total 100 / 580 Output Total 200 / 200 300 / 500 Balance -200 / 280 -200 / 80 Weight last 48 hrs Weight 222 lb 6.4 oz Weight 182 lb Physical Exam Narrative: EXAM NARRATIVE: GENERAL: Obese lady sitting in chair in no acute distress HEENT: Extraocular movement intact. No pallor or icterus. NECK: central trachea, no JVD, appreciated. No carotid bruit. CARDIOVASCULAR SYSTEM: S1-S2 regular. No S3 or S4 present. Grade 2/6 SM+ in URSB no rubs or gallops. RESPIRATORY SYSTEM: Decreased bilateral air entry specially in the lower lung valentino posteriorly. Occasional crackles present. No wheezes or rubs heard. No use of accessory muscles. ABDOMEN: Soft, nontender and nondistended. Normal bowel sounds present. EXTREMITIES: No cyanosis. 1+ edema. No signs of chronic venous insufficiency. 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 SKIN: Normal turgor and temperature. No breakdown, rash or nail changes noted. Data : 02/04/20 05:02 02/04/20 05:02 Micro: Microbiology 02/03/20 00:40 Blood Culture - Preliminary Blood Gram positive cocci 02/03/20 01:05 Blood Culture - Preliminary Blood NEGATIVE TO DATE A&P Assessment and plan (1) Non-ST elevation AL (NSTEMI): Patient complains of chest pain on and off with shortness of breath with exer tion over the last 2 weeks. She was able to tell me of at least 2 episodes of chest pain. Of note she is not a great historian and her EKG shows left bundle branch block (no priors available for comparison). -Baseline troponin T on arrival of 14 that increased to 38. -Her echocardiogram showed left ventricle ejection fraction of 30%, global hypokinesis more pronounced in the septum. Abnormal septal motion as well as at least moderate to severe aortic stenosis. -Started on aspirin and Lovenox. -Creatinine at 1.4 this morning. However BUN has increased to 37. Continue to monitor renal function and diurese her prior to proceeding with coronary angiogram. -This was discussed with patient and her granddaughter Carrie and they are agreeable. The risk of developing renal failure as well as risk of heart attack, stroke or with the procedure was discussed with the patient and they are willing to proceed with the same. -Plan to proceed with procedure on Thursday based on her renal function and clinical status. Status: Acute (2) Congestive heart failure: Newly diagnosed congestive heart failure with ejection Fraction of 30%. -Continue Coreg and old off on Lasix . -Not on SERGIO inhibitor or ARB or Arni given JAVIER Status: Acute Qualifiers: Heart failure chronicity: acute on chronic Heart failure type: unspecified Qualified Code(s): I50.9 - Heart failure, unspecified (3) Diabetes mellitus with hyperglycemia, without long-term current use of insulin: Status: Chronic Qualifiers: Diabetes mellitus type: type 2 Qualified Code(s): E11.65 - Type 2 di abetes mellitus with hyperglycemia (4) Essential hypertension: Status: Chronic Additional A&P Information LBBB: No prior EKG available for comparison. Moderate to severe aortic stenosis : Valve visually appears to be more in severe category. The study was technically difficult but peak velocity was 3.4 m/second, mean gradient of about 29 mmHg dimensionless valve index of 0. 21. JAVIER: Continue to closely monitor renal function. Hypothyroidism Morbid obesity Leukocytosis Thank you for allowing me to participate in patient's care. Please feel free to call with questions or concerns. 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
[2020-02-04] MEDS: carvedilol 6.25 mg Tablet PO ×2 (09:06→17:08)
[2020-02-04] MEDS: aspirin 325 mg Tablet PO (09:06)
[2020-02-04] MEDS: liothyronine 5 mcg Tablet 10 MCG PO (09:46)
--- NOTE | 2020-02-04 10:12 | P.PN_ITS ---
Subjective Subjective: Interval history: Patient denies shortness of breath or chest pain this morning. White blood cell count increased to 16.4. She denies abdominal pain or problems with bowel movement. Denies problems with urination. Denies cough. No evidence of infectious process. Vitals are stable. Medications: Reviewed: Yes Medication Review Details: Current Medications Aspirin (Aspirin) 325 mg PO DAILY [facility] Last Admin: 02/03/20 19:26 Dose: 325 mg Documented by: Atorvastatin Calcium (Lipitor) 20 mg PO BEDTIME [facility] Last Admin: 02/03/20 19:51 Dose: 20 mg Documented by: Carvedilol (Coreg) 6.25 mg PO BID [facility] Last Admin: 02/03/20 17:36 Dose: 6.25 mg Documented by: Dextrose (D50w) 25 ml IVP ONCE PRN; Protocol PRN Reason: hypoglycemia protocol Dextrose (D50w) 50 ml IVP PRN PRN; Protocol PRN Reason: hypoglycemia protocol Enoxaparin Sodium (Lovenox) 100 mg 1 mg/kg (100 mg) SUBCUT Q12H [facility] Last Admin: 02/04/20 05:09 Dose: 100 mg Documented by: Furosemide (Lasix) 20 mg IVP Q24H [facility] Last Admin: 02/04/20 02:23 Dose: 20 mg Documented by: Glucagon (Glucagen) 1 mg IM ONCE PRN; Protocol PRN Reason: Adult Acute Hypoglycemia Prot. Dextrose (D5w) 500 mls @ 100 mls/hr IV ONCE PRN; Protocol PRN Reason: Adult Acute Hypoglycemia Prot Insulin Aspart (Novolog) 0 unit SUBCUT WM&BEDTIME [facility]; Protocol Last Admin: 02/03/20 20:06 Dose: 4 unit Documented by: Liothyronine Sodium (Cytomel) 10 mcg PO DAILY [facility] Last Admin: 02/03/20 08:57 Dose: 10 mcg Documented by: Nitroglycerin (Nitrostat) 0.4 mg SUBLINGUAL Q5M PRN PRN Reason: CHEST PAIN Vitals/I&O/Wt Last Vital Signs Temp 98.0 F 02/04/20 07:59 Pulse 75 02/04/20 07:59 Resp 19 H 02/04/20 07:59 BP 98/66 02/04/20 07:59 Pulse Ox 96 02/04/20 07:59 02/03/20 02/04/20 02/04/20 22:59 06:59 14:59 Intake Total 100 / 580 480 / 480 Output Total 200 / 200 300 / 500 200 / 200 Balance -200 / 280 -200 / 80 280 / 280 Weight last 48 hrs Weight 100.879 kg Weight 82.554 kg Physical Exam Const: COMMON NORMALS: no acute distress and patient oriented x3 Resp: COMMON NORMALS: normal respiratory effort and clear to auscultation bilaterally AUSCULTATION: clear to auscultation bilaterally Cardio: COMMON NORMALS: regular rate, regular rhythm and S2 normal heart sound present RATE: regular rate RHYTHM: regular rhythm HEART SOUNDS: S2 normal heart sound present OTHER: No lower extremity edema GI: COMMON NORMALS: Normal to inspection, nondistended, normoactive bowel sounds present, Soft to palpation and non-tender PALPATION: Yes Soft to palpation Neuro: COMMON NORMALS: patient oriented x3 and no focal motor deficits Data : 02/04/20 05:02 02/04/20 05:02 Micro: Microbiology 02/03/20 00:40 Blood Culture - Preliminary Blood Gram positive cocci 02/03/20 01:05 Blood Culture - Preliminary Blood NEGATIVE TO DATE A&P Assessment and plan (1) Congestive heart failure: Status: Acute Qualifiers: Heart failure chronicity: acute on chronic Heart failure type: unspecified Qualified Code(s): I50.9 - Heart failure, unspecified (2) Memory deficit: Status: Chronic (3) Essential hypertension: Status: Chronic (4) Adult onset hypothyroidism: Status: Chronic (5) Hyponatremia: Status: Acute (6) Non-ST elevation NV (NSTEMI): Present on admission. Status: Acute Additional A&P Information New onset CHF I do not see any previous diagnosis of heart failure in her records Symptoms such as orthopnea, PND along high BNP, CT chest to rule out PE positive approved fusion and cardiomegaly Echo in the morning, check TSH Since she is na?ve to Lasix I would use 20 mg IV Lasix for now BiPAP to decrease work of breathing, considering her morbid obesity, I would recommend sleep study which could have contributed towards CHF exacerbation, she does not use oxygen or CPAP at the facility Hyponatremia Fluid overloaded state, most likely cause is hypervolemia Anticipate improvement with IV Lasix No acute neurological signs Essential hypertension: Currently normotensive Adult onset hypothyroidism, will check TSH, continue current regimen of liothyronine Acute on chronic kidney disease, Baseline creatinine seems to be normal, this seems cardiorenal in nature Monitor urine output and BMP Hold nephrotoxic agent Type 2 diabetes: Moderate sliding scale, Check A1c level Acute kidney injury, appears to be prerenal. Not present on admission. Goals of care: Full code DVT prophylaxis Heparin Consistent carb cardiac diet PLAN: Continue current monitoring and treatment. Appreciate Dr. Frank's help. If WBC continues to increase will consider empiric antibiotic treatment. Monitor vitals. Attestations Medical Necessity Statement*: Patient with NV and CHF requires close inpatient monitoring and treatment. 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
[2020-02-04 11:44] LABS: Glucose Point of Care 185 mg/dL (70-110)
[2020-02-04 16:53] LABS: Glucose Point of Care 115 mg/dL (70-110)
[2020-02-04 20:41] LABS: Glucose Point of Care 119 mg/dL (70-110)
[2020-02-04] MEDS: atorvastatin 40 mg Tablet 20 MG PO (20:42)
--- NOTE | 2020-02-05 02:07 | PC.NURSE ---
ASSUMED CARE AT [facility]. PT STATED THAT THEY FEEL MUCH BETTER. PT DENIES PAIN. WILL CONTINUE TO MONITOR.
[2020-02-05 03:23] VITALS: BP 82/57; PULSE 85; RESP 22; TEMP 36.4; O2SAT 98
[2020-02-05 05:17] LABS: Basophils % 0.2 %; Eosinophils # 0.1 10^3/uL (0.0-0.8); Eosinophils % 0.6 %; Hematocrit 34.5 % (37.0-47.0); Hemoglobin 11.1 g/dL (11.5-15.3); Lymphocytes # 2.4 10^3/uL (0.8-4.8); Mean Corpuscular HGB Conc 32.2 g/dL (30.0-36.0); Mean Corpuscular Hemoglobin 30.2 pg (28.0-34.0); Mean Corpuscular Volume 93.8 fL (81-99); Monocytes # 1.1 10^3/uL (0.2-0.9); Monocytes % 8.6 %; Neutrophils # 9.42 10^3/uL (1.8-7.7); Neutrophils % 72.1 %; Nucleated Red Blood Cells % 0 %; Platelet Count 215 10^3/cmm (130-400); Red Blood Count 3.68 10^6/uL (4.1-5.3); Red Cell Distribution Width 13.8 % (12.1-15.1); White Blood Count 13.1 10^3/uL (4.0-10.0)
[2020-02-05 05:36] LABS: Alanine Aminotransferase 20 U/L (0-33); Albumin Level 3.5 g/dL (3.5-5.2); Alkaline Phosphatase 47 IU/L (35-105); Aspartate Amino Transferase 17 U/L (0-32); Blood Urea Nitrogen 50 mg/dL (8-23); Calcium 9.1 mg/dL (8.5-10.5); Carbon Dioxide 24 mmol/L (22-29); Chloride 98 mmol/L (98-107); Globulin 3.6 g/dL (1.3-4.6); Glucose 113 mg/dL (65-115); Magnesium 2.1 mg/dL (1.7-2.3); Osmolality Calculated 288 mOsm/kg (285-295); Sodium 132 mmol/L (136-145); Total Bilirubin 0.6 mg/dL (0.15-1.2); Total Protein 7.1 g/dL (6.6-8.7)
[2020-02-05 05:44] LABS: Anion Gap 14.9 (5-19); Potassium 4.9 mmol/L (3.5-5.1)
[2020-02-05] MEDS: enoxaparin 100 mg/mL Syringe SUBCUT ×2 (05:44→18:24)
--- NOTE | 2020-02-05 06:38 | PC.NURSE ---
PT STATED THAT THEY ARE THE BEST PT. THAT WHATEVER NEEDS TO BE DONE JUST DO IT. PT STATED THAT THEY FEEL GREAT. PT DENIES PAIN AT THIS TIME. WILL CONTINUE TO MONITOR.
[2020-02-05 06:39] LABS: Glucose Point of Care 119 mg/dL (70-110)
[2020-02-05 08:00] VITALS: BP 108/67; PULSE 78; RESP 19; TEMP 36.4; O2SAT 98
--- NOTE | 2020-02-05 08:00 | PC.NURSE ---
discussed with pt about dr petit wanting pt to see if she is able to lay flat to see if we could do cardiac cath. pt agreeable to trying. pt tolerated well. oxygen saturation remained in 90's. no issues at this time. call light within reach, will continue to monitor.
[2020-02-05] MEDS: liothyronine 5 mcg Tablet 10 MCG PO (08:31)
[2020-02-05] MEDS: aspirin 325 mg Tablet PO (08:31)
[2020-02-05] MEDS: carvedilol 6.25 mg Tablet PO (08:31)
[2020-02-05] MEDS: FUROsemide 10 mg/mL SDV 2mL 20 MG IVP (09:42)
--- NOTE | 2020-02-05 10:11 | PM.PN ---
Subjective Subjective: Interval history: Patient denies having any chest pain or shortness of breath. Reports having mild nonproductive cough. Medications: Reviewed: Yes Medication Review Details: Current Medications Aspirin (Aspirin) 325 mg PO DAILY [facility] Last Admin: 02/03/20 19:26 Dose: 325 mg Documented by: Atorvastatin Calcium (Lipitor) 20 mg PO BEDTIME [facility] Last Admin: 02/03/20 19:51 Dose: 20 mg Documented by: Carvedilol (Coreg) 6.25 mg PO BID [facility] Last Admin: 02/03/20 17:36 Dose: 6.25 mg Documented by: Dextrose (D50w) 25 ml IVP ONCE PRN; Protocol PRN Reason: hypoglycemia protocol Dextrose (D50w) 50 ml IVP PRN PRN; Protocol PRN Reason: hypoglycemia protocol Enoxaparin Sodium (Lovenox) 100 mg 1 mg/kg (100 mg) SUBCUT Q12H [facility] Last Admin: 02/04/20 05:09 Dose: 100 mg Documented by: Furosemide (Lasix) 20 mg IVP Q24H [facility] Last Admin: 02/04/20 02:23 Dose: 20 mg Documented by: Glucagon (Glucagen) 1 mg IM ONCE PRN; Protocol PRN Reason: Adult Acute Hypoglycemia Prot. Dextrose (D5w) 500 mls @ 100 mls/hr IV ONCE PRN; Protocol PRN Reason: Adult Acute Hypoglycemia Prot Insulin Aspart (Novolog) 0 unit SUBCUT WM&BEDTIME [facility]; Protocol Last Admin: 02/03/20 20:06 Dose: 4 unit Documented by: Liothyronine Sodium (Cytomel) 10 mcg PO DAILY [facility] Last Admin: 02/03/20 08:57 Dose: 10 mcg Documented by: Nitroglycerin (Nitrostat) 0.4 mg SUBLINGUAL Q5M PRN PRN Reason: CHEST PAIN Vitals/I&O/Wt Last Vital Signs Temp 97.5 F L 02/05/20 03:23 Pulse 85 02/05/20 03:23 Resp 22 H 02/05/20 03:23 BP 82/57 02/05/20 03:23 Pulse Ox 98 02/05/20 03:23 02/04/20 02/05/20 02/05/20 22:59 06:59 14:59 Intake Total 540 / 1380 Output Total 500 / 700 200 / 200 Balance 40 / 680 -200 / -200 Physical Exam Const: COMMON NORMALS: no acute distress and patient oriented x3 Resp: COMMON NORMALS: normal respiratory effort OTHER: Minimal bibasilar Rales and what appears to be upper airway transmitted coarse breath sounds throughout. Cardio: COMMON NORMALS: regular rate, regular rhythm and S2 normal heart sound present RATE: regular rate RHYTHM: regular rhythm HEART SOUNDS: S2 normal heart sound present OTHER: No lower extremity edema GI: COMMON NORMALS: Normal to inspection, nondistended, normoactive bowel sounds present, Soft to palpation and non-tender PALPATION: Yes Soft to palpation Neuro: COMMON NORMALS: patient oriented x3 and no focal motor deficits Data : 02/05/20 04:34 02/05/20 04:34 Micro: Microbiology 02/03/20 00:40 Blood Culture - Preliminary Blood Coagulase negativ staphylococc A&P Assessment and plan (1) Congestive heart failure: Status: Acute Qualifiers: Heart failure chronicity: acute on chronic Heart failure type: unspecified Qualified Code(s): I50.9 - Heart failure, unspecified (2) Memory deficit: Status: Chronic (3) Essential hypertension: Status: Chronic (4) Adult onset hypothyroidism: Status: Chronic (5) Hyponatremia: Status: Acute (6) Non-ST elevation DC (NSTEMI): Present on admission. Status: Acute Additional A&P Information New onset CHF I do not see any previous diagnosis of heart failure in her records Symptoms such as orthopnea, PND along high BNP, CT chest to rule out PE positive approved fusion and cardiomegaly Echo in the morning, check TSH Since she is na?ve to Lasix I would use 20 mg IV Lasix for now BiPAP to decrease work of breathing, considering her morbid obesity, I would recommend sleep study which could have contributed towards CHF exacerbation, she does not use oxygen or CPAP at the facility Hyponatremia Fluid overloaded state, most likely cause is hypervolemia Anticipate improvement with IV Lasix No acute neurological signs Essential hypertension: Currently normotensive Adult onset hypothyroidism, will check TSH, continue current regimen of liothyronine Acute on chronic kidney disease, Baseline creatinine seems to be normal, this seems cardiorenal in nature Monitor urine output and BMP Hold nephrotoxic agent Type 2 diabetes: Moderate sliding scale, Check A1c level Acute kidney injury, appears to be prerenal. Not present on admission. Possible bronchitis/community-acquired pneumonia Goals of care: Full code DVT prophylaxis Heparin Consistent carb cardiac diet PLAN: Discussed with Dr. Frank this morning and plan to proceed with coronary angiogram tomorrow. Considering patient's cough, CTA result, WBC count and exam bronchitis/pneumonia cannot be completely ruled out therefore we will start patient on Levaquin. Attestations Medical Necessity Statement*: Patient with DC requires close inpatient monitoring, treatment and evaluation. 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
--- NOTE | 2020-02-05 10:24 | XRR_ITS ---
PROCEDURE INFORMATION: Exam: XR Chest, 1 View Exam date and time: 02/05/2020 12:33 PM Age: 84 years old Clinical indication: Shortness of breath; Additional info: SOB, chf TECHNIQUE: Imaging protocol: XR of the chest Views: 1 view. COMPARISON: CR XR chest 1V portable [id number] 02/02/2020 11:50 PM FINDINGS: Lungs: There is bibasilar patchy consolidation. A band of density along the right side of the mediastinum may represent pleural fluid in the fissure. When compared to previous study the aeration of the lung bases has improved. Pleural space: Pleural effusion probably in the major fissure on the right side. No pneumothorax. Heart/Mediastinum: The heart is enlarged. Bones/joints: Unremarkable. XR/XR chest 1V portable [id number] IMPRESSION: 1. Stable cardiomegaly. 2. Improved bibasilar infiltrates and effusion.
--- NOTE | 2020-02-05 10:30 | PM.PN ---
Subjective Subjective: Interval history: Patient denies having any chest pain last night. Not sure if urine output has been documented properly. UO 700 ml . No events on telemetry Medications: Reviewed: Yes Medication Review Details: Current Medications Aspirin (Aspirin) 325 mg PO DAILY [facility] Last Admin: 02/03/20 19:26 Dose: 325 mg Documented by: Atorvastatin Calcium (Lipitor) 20 mg PO BEDTIME [facility] Last Admin: 02/03/20 19:51 Dose: 20 mg Documented by: Carvedilol (Coreg) 6.25 mg PO BID [facility] Last Admin: 02/03/20 17:36 Dose: 6.25 mg Documented by: Dextrose (D50w) 25 ml IVP ONCE PRN; Protocol PRN Reason: hypoglycemia protocol Dextrose (D50w) 50 ml IVP PRN PRN; Protocol PRN Reason: hypoglycemia protocol Enoxaparin Sodium (Lovenox) 100 mg 1 mg/kg (100 mg) SUBCUT Q12H [facility] Last Admin: 02/04/20 05:09 Dose: 100 mg Documented by: Furosemide (Lasix) 20 mg IVP Q24H [facility] Last Admin: 02/04/20 02:23 Dose: 20 mg Documented by: Glucagon (Glucagen) 1 mg IM ONCE PRN; Protocol PRN Reason: Adult Acute Hypoglycemia Prot. Dextrose (D5w) 500 mls @ 100 mls/hr IV ONCE PRN; Protocol PRN Reason: Adult Acute Hypoglycemia Prot Insulin Aspart (Novolog) 0 unit SUBCUT WM&BEDTIME [facility]; Protocol Last Admin: 02/03/20 20:06 Dose: 4 unit Documented by: Liothyronine Sodium (Cytomel) 10 mcg PO DAILY [facility] Last Admin: 02/03/20 08:57 Dose: 10 mcg Documented by: Nitroglycerin (Nitrostat) 0.4 mg SUBLINGUAL Q5M PRN PRN Reason: CHEST PAIN Vitals/I&O/Wt Last Vital Signs Temp 97.5 F L 02/05/20 03:23 Pulse 85 02/05/20 03:23 Resp 22 H 02/05/20 03:23 BP 82/57 02/05/20 03:23 Pulse Ox 98 02/05/20 03:23 02/04/20 02/05/20 02/05/20 22:59 06:59 14:59 Intake Total 540 / 1380 Output Total 500 / 700 200 / 200 Balance 40 / 680 -200 / -200 Physical Exam Narrative: EXAM NARRATIVE: GENERAL: Obese lady sitting in chair in no acute distress HEENT: Extraocular movement intact. No pallor or icterus. NECK: central trachea, no JVD, appreciated. No carotid bruit. CARDIOVASCULAR SYSTEM: S1-S2 regular. No S3 or S4 present. Grade 2/6 SM+ in URSB no rubs or gallops. RESPIRATORY SYSTEM: Decreased bilateral air entry specially in the lower lung valentino posteriorly. Occasional crackles present. No wheezes or rubs heard. No use of accessory muscles. ABDOMEN: Soft, nontender and nondistended. Normal bowel sounds present. EXTREMITIES: No cyanosis. trace edema. No signs of chronic venous insufficiency. 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 SKIN: Normal turgor and temperature. No breakdown, rash or nail changes noted. Data : 02/05/20 04:34 02/05/20 04:34 Micro: Microbiology 02/03/20 00:40 Blood Culture - Preliminary Blood Coagulase negativ staphylococc A&P Assessment and plan (1) Non-ST elevation [place] (NSTEMI): Patient complains of chest pain on and off with shortness of breath with exertion over the last 2 weeks. She was able to tell me of at least 2 episodes of chest pain. Of note she is not a great historian and her EKG shows left bundle branch block (no priors available for comparison). -Baseline troponin T on arrival of 14 that increased to 38. -Her echocardiogram showed left ventricle ejection fraction of 30%, global hypokinesis more pronounced in the septum. Abnormal septal motion as well as at least moderate to severe aortic stenosis. -Started on aspirin and Lovenox. -Creatinine at 1.4 this morning. However BUN has increased to 37. Continue to monitor renal function and diurese her prior to proceeding with coronary angiogram. -This was discussed with patient and her granddaughter Carrie and they are agreeable. The risk of developing renal failure as well as risk of heart attack, stroke or with the procedure was discussed with the patient and they are willing to proceed with the same. -Plan to proceed with procedure on Thursday based on her renal function and clinical status. Status: Acute (2) Congestive heart failure: Newly diagnosed congestive heart failure with ejection Fraction of 30%. -Continue Coreg and Lasix 20 mg IV x 1. -Not on SERGIO inhibitor or ARB or Arni given JAVIER Status: Acute Qualifiers: Heart failure chronicity: acute on chronic Heart failure type: unspecified Qualified Code(s): I50.9 - Heart failure, unspecified (3) Diabetes mellitus with hyperglycemia, without long-term current use of insulin: Status: Chronic Qualifiers: Diabetes mellitus type: type 2 Qualified Code(s): E11.65 - Type 2 diabetes mellitus with hyperglycemia (4) Essential hypertension: Status: Chronic Additional A&P Information LBBB: No prior EKG available for comparison. Moderate to severe aortic stenosis : Valve visually appears to be more in severe category. The study was technically difficult but peak velocity was 3.4 m/second, mean gradient of about 29 mmHg dimensionless valve index of 0. 21. JAVIER: Continue to closely monitor renal function. Hypothyroidism Morbid obesity PNA Thank you for allowing me to participate in patient's care. Please feel free to call with questions or concerns. 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
--- NOTE | 2020-02-05 11:00 | PC.NURSE ---
discussed with pt the reason for holding off on the cardiac cath. pt verbalized an understanding. call light within reach, will continue to monitor.
[2020-02-05 11:18] LABS: Glucose Point of Care 133 mg/dL (70-110)
[2020-02-05] MEDS: levofloxacin-dextrose 5 % 500 MG/100 ML PREMIX 100 MG IV (11:29)
[2020-02-05] MEDS: clopidogrel 300 mg Tablet 600 MG PO (11:29)
[2020-02-05 11:31] VITALS: BP 108/71; PULSE 84; RESP 19; TEMP 36.5; O2SAT 99
[2020-02-05 12:14] VITALS: PULSE 82; O2SAT 95
--- NOTE | 2020-02-05 14:08 | PC.NURSE ---
pt has ambulated to bathroom multiple times today. has had episodes of incontinence making it difficult to keep strict I&O. will continue to monitor. call light within reach.
[2020-02-05 16:00] VITALS: BP 99/77; PULSE 99; RESP 19; O2SAT 98
[2020-02-05 16:54] LABS: Glucose Point of Care 108 mg/dL (70-110)
[2020-02-05] MEDS: sodium chloride 0.9% 250 ML IV ×2 (17:03→18:44)
--- NOTE | 2020-02-05 17:08 | PC.NURSE ---
pt blood pressure 99/77, dr petit notified and ordered bolus. will continue to monitor. call light within reach.
--- NOTE | 2020-02-05 18:54 | PC.NURSE ---
dr petit notified of blood pressure being 102/60 after 250 ml bolus. ordered to hold coreg 3.125 mg and to give another 250 ml bolus.
[2020-02-05 20:00] VITALS: BP 101/67; PULSE 92; RESP 19; TEMP 36.7; O2SAT 98
[2020-02-05] MEDS: atorvastatin 40 mg Tablet PO (20:32)
--- NOTE | 2020-02-05 20:38 | PC.NURSE ---
PT IS UP IN CHAIR AT THIS TIME. PT HAD RECEIVED A 250ML BOLUS AT CHANGE OF SHIFT. BP IS NOW 101/67. PT DENIES ANY PAIN AT THIS TIME. WILL CONTINUE TO MONITOR.
[2020-02-05 20:40] LABS: Glucose Point of Care 175 mg/dL (70-110)
[2020-02-06] VITALS (51 sets, daily range): BP systolic 54–130; BP diastolic 39–92; PULSE 76–97; RESP 13–32; TEMP 36.4–36.7; O2SAT 63–98
[2020-02-06] MEDS: enoxaparin 100 mg/mL Syringe SUBCUT (05:15)
[2020-02-06] MEDS: sodium chloride 0.9% 1,000 ML 100 ML IV ×2 (05:20→12:30)
[2020-02-06 05:40] LABS: Basophils % 0.3 %; Eosinophils # 0.2 10^3/uL (0.0-0.8); Eosinophils % 2.2 %; Hematocrit 32.1 % (37.0-47.0); Hemoglobin 10.5 g/dL (11.5-15.3); Lymphocytes # 2.2 10^3/uL (0.8-4.8); Lymphocytes % 24.2 %; Mean Corpuscular HGB Conc 32.7 g/dL (30.0-36.0); Mean Corpuscular Hemoglobin 30.5 pg (28.0-34.0); Mean Corpuscular Volume 93.3 fL (81-99); Mean Platelet Volume 10.8 fL (7.4-10.4); Monocytes % 11.2 %; Neutrophils # 5.52 10^3/uL (1.8-7.7); Neutrophils % 61.5 %; Nucleated Red Blood Cells % 0 %; Platelet Count 199 10^3/cmm (130-400); Red Blood Count 3.44 10^6/uL (4.1-5.3)
[2020-02-06 06:06] LABS: Alanine Aminotransferase 20 U/L (0-33); Albumin Level 3.5 g/dL (3.5-5.2); Alkaline Phosphatase 49 IU/L (35-105); Anion Gap 10.4 (5-19); Aspartate Amino Transferase 13 U/L (0-32); Blood Urea Nitrogen 44 mg/dL (8-23); Calcium 9.3 mg/dL (8.5-10.5); Carbon Dioxide 27 mmol/L (22-29); Chloride 98 mmol/L (98-107); Globulin 3.4 g/dL (1.3-4.6); Glucose 119 mg/dL (65-115); Osmolality Calculated 284 mOsm/kg (285-295); Potassium 4.4 mmol/L (3.5-5.1); Sodium 131 mmol/L (136-145); Total Bilirubin 0.8 mg/dL (0.15-1.2); Total Protein 6.9 g/dL (6.6-8.7)
--- NOTE | 2020-02-06 06:07 | PC.NURSE ---
PT IS A BIT ANXIOUS ABOUT PROCEDURE, BUT AT THE SAME TIME WANTS IT DONE AND OVER WITH. PT IS PLEASANT AND UPBEAT. DENIES PAIN AT THIS TIME. NS RUNNING AT 100ML/HR WAS STARTED 20 MINUTES LATE D/T WAITING FOR CLARIFICATION ON WETHER TO START FLUIDS AT THAT TIME OR WAIT BEFORE CATH. WILL GIVE REPORT TO ONCOMING NURSE.
[2020-02-06 06:36] LABS: Glucose Point of Care 112 mg/dL (70-110)
--- NOTE | 2020-02-06 07:52 | P.PN_ITS ---
Subjective Subjective: Interval history: And awake in bed at time of exam this morning. She denied any chest pain or shortness of breath. Patient reported no concerns this morning other than her IV in her left hand bothering her. Vitals/I&O/Wt Last Vital Signs Temp 97.5 F L 02/06/20 07:21 Pulse 83 02/06/20 07:21 Resp 21 H 02/06/20 07:21 BP 112/68 02/06/20 07:21 Pulse Ox 97 02/06/20 07:21 02/05/20 02/06/20 02/06/20 22:59 06:59 14:59 Intake Total 360 / 1060 Output Total 1200 / 1750 650 / 2400 Balance -840 / -690 -650 / -1340 Physical Exam Const: COMMON NORMALS: patient oriented x3 and alert GENERAL APPEARANCE: cooperative ORIENTATION/CONSCIOUSNESS: Yes awake, Yes oriented to person and Yes oriented to place HENMT: COMMON NORMALS: normocephalic and atraumatic HEAD & SCALP: normocephalic and atraumatic Neck/C-Spine: COMMON NORMALS: supple GENERAL: Yes normal visual inspection Resp: COMMON NORMALS: normal respiratory effort and clear to auscultation bilaterally EFFORT & INSPECTION: Yes able to speak in complete sentences AUSCULTATION: clear to auscultation bilaterally, no rhonchi and no wheezes Cardio: COMMON NORMALS: regular rate and regular rhythm RATE: regular rate RHYTHM: regular rhythm OTHER: Grade 3 systolic murmur GI: COMMON NORMALS: Soft to palpation and non-tender INSPECTION: No abdominal distension AUSCULTATION: Yes normoactive bowel sounds PALPATION: Yes Soft to palpation Extremity: COMMON NORMALS: no clubbing, cyanosis or edema and no calf tender ness Neuro: COMMON NORMALS: patient oriented x3, CN's II-XII intact bilaterally, moves all extremities and no focal motor deficits SENSORIUM/ORIENTATION: Yes alert, Yes oriented to person and Yes oriented to place SPEECH: speech normal Psych: COMMON NORMALS: mental status grossly normal and cooperative Skin: COMMON NORMALS: no rashes or lesions noted GENERAL SKIN EXAM: no rashes or lesions noted Data : 02/06/20 05:03 02/06/20 05:03 A&P Assessment and plan (1) Congestive heart failure: Acute systolic CHF, now appears to be euvolemic, Lasix on hold due to increase in BUN Status: Acute Qualifiers: Heart failure chronicity: acute on chronic Heart failure type: unspecified Qualified Code(s): I50.9 - Heart failure, unspecified (2) Memory deficit: At baseline Status: Chronic (3) Essential hypertension: Continue on Coreg, blood pressure well controlled at this time Status: Chronic (4) Adult onset hypothyroidism: Continue Cytomel 10 mcg daily Status: Chronic (5) Hyponatremia: Initially believed to be secondary to volume overload, holding Lasix at this time due to increasing BUN Status: Acute (6) Non-ST elevation [place] (NSTEMI): Present on admission. With plan for cardiac cath today, cardiology consulted, appreciate recommendations Continue on aspirin, Plavix, statin, Lovenox, Coreg Status: Acute Additional A&P Information Positive blood culture: 2 of 4+ in the same set gram-positive cocci in clusters, probable contaminant. Concern for obesity hypoventilation: Off of BiPAP this morning, on room air with saturation 97%. Acute on chronic kidney disease: Continue with strict intake and output as well as daily weights. Holding Lasix at this time due to concern for increase in BUN. Given IV fluids due to concern for prerenal etiology. Type 2 diabetes: Moderate sliding scale insulin, A1c 5.3 on admission. Possible bronchitis/community-acquired pneumonia: Continue Levaquin 750 mg daily Goals of care: Full code DVT prophylaxis: Treatment dose Lovenox as above Diet: N.p.o. PLAN: Cardiac cath today. Attestations Medical Necessity Statement*: Patient requires further hospitalization due to non-ST elevation VA Coding Level of Care Code Acute Missile Pad Mechanic for Candice Ibarra Diagnoses Congestive heart failure I50.9 Heart failure chronicity: acute on chronic Heart failure type: unspecified Memory deficit R41.3 Essential hypertension I10 Adult onset hypothyroidism E03.8 Hyponatremia E87.1 Non-ST elevation VA (NSTEMI) I21.4
[2020-02-06] MEDS: aspirin 325 mg Tablet PO (09:03)
[2020-02-06] MEDS: liothyronine 5 mcg Tablet 10 MCG PO (09:03)
[2020-02-06] MEDS: carvedilol 3.125 mg Tablet PO ×2 (09:05→17:34)
--- NOTE | 2020-02-06 09:24 | PC.SOCIAL ---
Pg 2 IMM Explained to pt Pg 2 IMM. Provided pt a copy. No questions voiced. Signed, dated, & timed a copy & placed in chart.
--- NOTE | 2020-02-06 09:59 | PC.CHAP ---
Pastoral Care Encounter/Spiritual Assessment Type of Contact [] Declined operator assistant i cementing visit [] Patient/Family/Request visit [] Outpatient visit [x] Follow-up visit [] Physician referral [] Code/Alert [] Routine visit [] Staff referral [] Actively dying [] Patient sleeping [] Family support [] [] Out of room [] Palliative care [] [] Receiving care in room [] Pre-surgical visit [] Trauma [] Long length of stay [] ICU visit [] Other: Relational/Emotional Strength [] Patient feels connected with others/family/visitors/staff [] Distress [] Loneliness/isolation [] Abandonment Spirituality of Patient [x] Person of Jennifer [] Attends Shinto of their Jennifer [] Believes in Prayer [] Reads Bible or Bahai materials [] There are Spiritual issues to be addressed Pediatric Audiologist Interventions [x] Prayer [] Active listening [] Non-anxious presence [] Spiritual/emotional support [] Crisis/trauma care [] Spiritual counseling [] Bereavement support [] Provided bereavement packet [] Provided Bible/devotional materials [] Provided toy/stuffed animal, coloring book to patient or family member [] Provided Communion [] Anointing/[place] [] Salvation [x] Completed spiritual assessment [] Other: Impact on Illness or Injury [] Angry [] Fearful [] Anxious [] Often cries [] Exhaustion [] Unable to work [] Unable to attend restorationism [] Unable to walk/stand [] Unable to read [] Unable to drive [] Unable to eat/drink [] Unable to sleep [] Unable to be with family [] Patient intubated [] Other: Summary Time spent with patient
--- NOTE | 2020-02-06 10:00 | XACV_ITS ---
Exam Room: [facility] Ht: 155 cm Wt: 101 kg BSA: 2.14 m2 Gender: Female : 1935 Any Known Allergies: No known allergies Exam Priority: Routine Procedure(s): Procedure Description: Diagnostic procedure Procedure Description: Left Heart Catheterization Procedure Description: Coronary Angiography Diagnostic Findings * No significant disease noted in the Left Main, LAD, Circumflex, or RCA coronary arteries. * Coronary angiography shows right dominance. Conclusions 1. No significant disease noted in the Left Main, LAD, Circumflex, or RCA coronary arteries. 2. Severe spasm of 3. radial artery 4. noted relieved with nitroglycerin. 5. Severe spasm of 6. proximal RCA noted 7. resolved after nitroglycerin. 8. Indication for 9. left heart cath: 10. Non-ST relation [place]. Recommendations * Continue current medical management and risk factor modification. Diagnostic RX Recommendation: medical therapy and/or counseling Pressures Phase:Rest AO : 78 / 66 ( 71 ) @ 6:33:00 AM 84 / 59 ( 71 ) @ 6:35:00 AM 110 / 46 ( 73 ) @ 6:41:00 AM 99 / 60 ( 77 ) @ 6:41:00 AM 109 / 100 ( 90 ) @ 6:47:00 AM 85 / 69 ( 76 ) @ 6:52:00 AM 136 / 71 ( 93 ) @ 6:58:00 AM LV : 139 / 10 / @ 6:40:00 AM 129 / 12 / @ 6:41:00 AM 142 / 5 / @ 6:41:00 AM Valves Phase:DefaultPhase AV : 44.0 @ 12:09:44 PM AV Mean Gradient: 28.0 @ 12:09:44 PM Clinical Evaluation EBL: 5mL-10mL Procedural Details Procedure Consent Obtained. Pre-Procedure Time Out. Identified patient by full name and date of as verbalized by the patient/guarantor. Does the consent match the physician's order: Yes. Accurate & Complete Informed Consent: Yes. Inpatient/Outpatient History & Physical on Chart: Yes. If H&P is completed, is and addenduem needed: N/A; If yes, is the addendum complete: N/A. Visualize and Verify Site with Patient/Guarantor: N/A. Relevant Radiology Images available: Yes. Pre-op teaching completed and patient verbalized understanding. The risks, benefits, and alternatives of sedation and/or procedure were discussed by physician. The patient agrees to continue. Procedure started. PERRLA. Strong, equal hand display fabrication supervisor bilaterally. Lungs clear x 5 lobes. IV Fluids: 0.9% NaCl at KVO. 0 mL infused prior to medical lab technologist. Oxygen started at 2liters/min via nasal canula. right groin was prepped with chloroprep then draped in the usual sterile fashion. right radial was prepped with chloroprep then draped in the usual sterile fashion. Physician notified. Baseline sample Acquired. HR: 103 BPM. Equipment: 5F - Radial. Heparinized Saline (2 units/mL), 1000 mL bag. Inventory is YuuConnect 5Fr Glidesheath. Cardiac Cath Pack. ACIST Manifold Kit Model BT 2000. A 20 gauge IV was started in the left anticubital using aseptic technique. Physician arrived. Dr. Lerner spoke with legal guardian Meaghan. Physician scrubbed in. Immediate Pre-Procedure Time Out. Correct Patient: Yes; Correct Procedure: Yes; Correct Site: Yes; Correct Patient Position: Yes; Correct Supplies: Yes; Dried Flammable Prep: Yes; Blood Products Available: No;. Lidocaine 1% infiltrated to the right radial. Arterial access obtained. glidewire inserted. hand injection through catheter. glidewire out. glidewire inserted. hand injection through catheter. glidewire out. Multiple views taken of right coronary artery. Catheter redirected to the LCA. Catheter out. A 5 palauan Angled Pig catheter in over wire. EDP Sample taken: LV 139/10,25; HR: 90 BPM; SpO2: 95%. EDP Sample taken: LV 129/12,15; HR: 89 BPM; SpO2: 95%. Pullback taken: LV 142/5,27; AO 99/60(77); Mean: 28mmHg, Peak to Peak: 44mmHg, SEP: 25sec/min; HR: 89 BPM; SpO2: 95%. Catheter out. A 5 palauan Chris catheter in over wire. Multiple views taken of left coronary artery. Catheter out. A 5 palauan JL4 catheter in over wire. Multiple views taken of left coronary artery. Catheter out. A 5 palauan AR MOD catheter in over wire. Multiple views taken of right coronary artery. Catheter out. A TR Band was successful obtaining hemostatsis at the Right Radial artery insertion site. TR band placed. Hemostasis obtained. PERRLA. Strong, equal hand display fabrication supervisor bilaterally. No VTE prophylaxis required. Fluoro: 13:08. Contrast type used: Omnipaque 300 mgI/mL, 500 mL bottle. [id number]. Post-op diagnosis: aortic stentosis cardiomyopthy. Complications: none. Estimated blood loss: 5mL-10mL. Procedure completed. Patient transferred by bed to 1st floor. Medication's Wasted: Nitro = 49 mg. Medication's Wasted: Other = fentanyl 75 mcg. Medication's Wasted: Lidocaine 1% = 18 mL. Total IV fluids: 76.3 mL. [facility] Clinical Fraility Score: 4: Vulnerable. Staffing Coordinator Indications: ACS > 24 hours. Chest Pain Symptom Assessment: Typical Angina Symptoms. Vital chart was stopped. Medication's Wasted: Other = versed 1.5 mg. Access Site Site: Right Radial artery Sheath Size: 6 Fr Hemostasis Method: TR Band Hemostasis Success: Successful Procedure Medications Start: 11:03 AM Stop: 11:03 AM Medication: Versed Amount: 1 mg Route: I.V. Start: 11:03 AM Stop: 11:03 AM Medication: Fentanyl Amount: 25 mcg Route: I.V. Start: 11:17 AM Stop: 11:17 AM Medication: Versed Amount: 1 mg Route: I.V. Start: : AM Stop: AM Medication: Nitrogylcerin Amount: 200 mcg Route: I.A. Start: : AM Stop: AM Medication: Nitrogylcerin Amount: 400 mcg Route: I.A. Start: : AM Stop: AM Medication: Heparin Amount: 5000 units Route: I.V. Start: : AM Stop: AM Medication: Nitrogylcerin Amount: 400 mcg Route: I.C. Start: 11:50 AM Stop: :50 AM Medication: Versed Amount: 0.5 mg Route: I.V. I, the attending physician, have reviewed and verified all procedure medications. Yes, all medications given per verbal order History/Risk Factors Hypertension: Yes Dyslipidemia: No Peripheral Arterial Disease (PAD): No Myocardial Infarction ([place]): No Obesity: Yes Renal Disease: No Tobacco Use: Never Prior Interventions PCI: No CABG: No Valve Surgery: No Report Signatures Finalized by Umer Lerner MD on 02/20/2020 05:05 PM
[2020-02-06] MEDS: diphenhydrAMINE 25 mg Capsule 50 MG PO (10:01)
--- NOTE | 2020-02-06 10:45 | PC.NURSE ---
pt off floor to lab nurse.
--- NOTE | 2020-02-06 10:59 | W.PM.OPSUD ---
Surgery/Procedure H&P Update DATE OF PROCEDURE: February 06, 2020 DATE H&P PERFORMED: 02/03/20 H&P UPDATE INFORMATION: I have reviewed H&P completed within last 30 days, I have examined patient prior to procedure and No changes to prior documentation PREOP DIAGNOSIS: Non-ST elevation [place], severely depressed LV function, moderate to severe aortic stenosis PLANNED PROCEDURE: Operation Date: 02/06/20 10:30 Proposed Procedures p Cardiac Catheterization(Not Applicable) - Umer Lerner MD PATIENT REASSESSED PRIOR TO SEDATION, WITH NO CHANGE NOTED: Yes PHYSICAL EXAM: alert, oriented x 3, clear to auscultation bilaterally and regular rate & rhythm OTHER PERTINENT EXAM FINDINGS: 2 x 6 systolic ejection murmur AIRWAY EVAL/ANESTHESIA PLAN: ASA II ADDITIONAL INFORMATION: I have discussed with the patient in detail regarding all the risk benefit and alternative for the procedure. I have discussed with the patient regarding risk of stroke arrhythmia bleeding. She understands it and would like to proceed with it. She is good candidate for DAPT. I have discussed in detail regarding her legal guardian Meaghan over the phone regarding all the risk benefit alternative for the procedure. She understand that patient is at high risk for bleeding contrast-induced nephropathy stroke mortality and morbidity. She would like everything to be done she would not like to continue conservative management. We will therefore proceed with coronary angiogram and intervention with drug-eluting stent if needed.
--- NOTE | 2020-02-06 12:30 | PC.NURSE ---
pt back from labview programmer. no hematoma present. tr bands in place. vitals taken, call light within reach, will continue to monitor.
[2020-02-06 12:46] LABS: Glucose Point of Care 124 mg/dL (70-110)
--- NOTE | 2020-02-06 15:00 | PC.NURSE ---
top tr band removed at this time. hand is no longer cyonotic, back to normal color. will continue to monitor.
--- NOTE | 2020-02-06 15:00 | PC.NURSE ---
tr bands taken down per protocol. top tr band off at 1500. no hematoma present, will continue to monitor. call light within reach.
--- NOTE | 2020-02-06 15:36 | PC.NURSE ---
Addendum entered by Susana Fletcher 02/06/20 15:43: time wasn't changed. time should have been documented as 1215. Original Note: two tr bands applied due to high risk for bleeding.
[2020-02-06 16:36] LABS: Glucose Point of Care 147 mg/dL (70-110)
[2020-02-06] MEDS: acetaminophen 325 mg Tablet 650 MG PO (17:33)
--- NOTE | 2020-02-06 17:44 | P.PN_ITS ---
Subjective Subjective: Interval history: s/p cath with normal coronaries. Medications: Reviewed: Yes Medication Review Details: Current Medications Acetaminophen (Tylenol) 650 mg PO Q6H PRN PRN Reason: MILD PAIN Last Admin: 02/06/20 17:33 Dose: 650 mg Documented by: Al Hydrox/Mg Hydrox/Simethicone (Maalox) 30 ml PO Q15M PRN PRN Reason: INDIGESTION Alprazolam (Xanax) 0.25 mg PO TID PRN PRN Reason: ANXIETY Aspirin (Aspirin) 325 mg PO DAILY [facility] Last Admin: 02/06/20 09:03 Dose: 325 mg Documented by: Atorvastatin Calcium (Lipitor) 40 mg PO BEDTIME JENNIFER Last Admin: 02/05/20 20:32 Dose: 40 mg Documented by: Atropine Sulfate (Atropine) 0.5 mg IVP PRN PRN PRN Reason: Symptomatic bradycardia Carvedilol (Coreg) 3.125 mg PO BID [facility] Last Admin: 02/06/20 17:34 Dose: 3.125 mg Documented by: Dextrose (D50w) 25 ml IVP ONCE PRN; Protocol PRN Reason: hypoglycemia protocol Dextrose (D50w) 50 ml IVP PRN PRN; Protocol PRN Reason: hypoglycemia protocol Fentanyl (Sublimaze) 50 mcg IVP PRN PRN PRN Reason: Prior to sheath removal Glucagon (Glucagen) 1 mg IM ONCE PRN; Protocol PRN Reason: Adult Acute Hypoglycemia Prot. Dextrose (D5w) 500 mls @ 100 mls/hr IV ONCE PRN; Protocol PRN Reason: Adult Acute Hypoglycemia Prot Levofloxacin/Dextrose (Levaquin-D5w) 500 mg in 100 mls @ 100 mls/hr IV Q48H JENNIFER; Protocol Last Infusion: 02/05/20 12:29 Dose: Infused Documented by: Sodium Chloride (Sodium Chloride 0.9%) 1,000 mls @ 100 mls/hr IV .Q10H JENNIFER Last Admin: 02/06/20 12:30 Dose: 100 mls/hr Documented by: Insulin Aspart (Novolog) 0 unit SUBCUT WM&BEDTIME JENNIFER; Protocol Last Admin: 02/06/20 17:34 Dose: 4 unit Documented by: Liothyronine Sodium (Cytomel) 10 mcg PO DAILY [facility] Last Admin: 02/06/20 09:03 Dose: 10 mcg Documented by: Magnesium Hydroxide (Milk Of Magnesia) 30 ml PO DAILY PRN PRN Reason: CONSTIPATION Naloxone HCl (Narcan) 0.1 mg IVP Q2M PRN PRN Reason: RESPIRATORY RATE < 8/MIN Nitroglycerin (Nitrostat) 0.4 mg SUBLINGUAL Q5M PRN PRN Reason: CHEST PAIN Temazepam (Restoril) 15 mg PO BEDTIME PRN PRN Reason: INSOMNIA Vitals/I&O/Wt Last Vital Signs Temp 97.6 F 02/06/20 16:00 Pulse 81 02/06/20 14:45 Resp 21 H 02/06/20 14:45 BP 106/68 02/06/20 14:45 Pulse Ox 94 02/06/20 14:45 02/06/20 02/06/20 02/06/20 06:59 14:59 22:59 Intake Total 100 / 100 Output Total 650 / 2400 600 / 600 400 / 1000 Balance -650 / -1340 -500 / -500 -400 / -900 Physical Exam Narrative: EXAM NARRATIVE: GENERAL: Obese lady sitting in chair in no acute distress HEENT: Extraocular movement intact. No pallor or icterus. NECK: central trachea, no JVD, appreciated. No carotid bruit. CARDIOVASCULAR SYSTEM: S1-S2 regular. No S3 or S4 present. Grade 2/6 SM+ in URSB no rubs or gallops. RESPIRATORY SYSTEM: Decreased bilateral air entry specially in the lower lung valentino posteriorly. Occasional crackles present. No wheezes or rubs heard. No use of accessory muscles. ABDOMEN: Soft, nontender and nondistended. Normal bowel sounds present. EXTREMITIES: No cyanosis. trace edema. No signs of chronic venous insufficiency. 2+ ELECTROMATIC TYPIST: Patient is alert oriented to self. SKIN: Normal turgor and temperature. No breakdown, rash or nail changes noted. Data : 02/06/20 05:03 02/06/20 05:03 A&P Assessment and plan (1) Non-ST elevation [place] (NSTEMI): Patient complains of chest pain on and off with shortness of breath with exertion over the last 2 weeks. She was able to tell me of at least 2 episodes of chest pain. Of note she is not a great historian and her EKG shows left bundle branch block (no priors available for comparison). -Baseline troponin T on arrival of 14 that increased to 38. -Her echocardiogram showed left ventricle ejection fraction of 30%, global hypokinesis more pronounced in the septum. Abnormal septal motion as well as at least moderate to severe aortic stenosis. -Started on aspirin and Lovenox. -Creatinine at 1.4 this morning. However BUN has increased to 37. Continue to monitor renal function and diurese her prior to proceeding with coronary angio gram. -This was discussed with patient and her granddaughter Carrie and they are agreeable. The risk of developing renal failure as well as risk of heart attack, stroke or with the procedure was discussed with the patient and they are willing to proceed with the same. Cath was done today with normal coronaries. ostial RCA with catheter related spam. Peak to peak gradient for aortic valve ~44 mm Hg. This is consistent with severe . Further work up as an outpatient. -Possible d/c am. -continue ASA, statin Status: Acute (2) Congestive heart failure: Newly diagnosed congestive heart failure with ejection Fraction of 30%. - Coreg and Lasix held. -Not on SERGIO inhibitor or ARB or Arni given JAVIER Status: Acute Qualifiers: Heart failure chronicity: acute on chronic Heart failure type: unspecified Qualified Code(s): I50.9 - Heart failure, unspecified (3) Diabetes mellitus with hyperglycemia, without long-term current use of insulin: Status: Chronic Qualifiers: Diabetes mellitus type: type 2 Qualified Code(s): E11.65 - Type 2 diabetes mellitus with hyperglycemia (4) Essential hypertension: BP soft Status: Chronic Additional A&P Information LBBB: No prior EKG available for comparison. Likely severe aortic stenosis : Valve visually appears to be more in severe category. The study was technically difficult but peak velocity was 3.4 m/second, mean gradient of about 29 mmHg, dimensionless valve index of 0. 21. JAVIER: Continue to closely monitor renal function. Hypothyroidism Morbid obesity PNA Thank you for allowing me to participate in patient's care. Please feel free to call with questions or concerns. Attestations Medical Necessity Statement*: Needs hospital stay for CHF, JAVIER and severe Coding Level of Care Code Acute Kettle Loader for [facility] Fwd Diagnoses Non-ST elevation [place] (NSTEMI) I21.4 Congestive heart failure I50.9 Heart failure chronicity: acute on chronic Heart failure type: unspecified Diabetes mellitus with hyperglycemia, without long-term current use of insulin E11.65 Diabetes mellitus type: type 2 Essential hypertension I10
--- NOTE | 2020-02-06 19:56 | PC.NURSE ---
Dr. Lerner ordered to stop fluid order.
[2020-02-06 20:21] LABS: Glucose Point of Care 354 mg/dL (70-110)
[2020-02-06] MEDS: atorvastatin 40 mg Tablet 20 MG PO (20:38)
--- NOTE | 2020-02-06 23:09 | PC.NURSE ---
Patient was alert to person, place, and situation upon first shift assessment. Patient did not answer correctly to the year. Patient had oozing from right lower abdomen from previous injection site. Dressing applied. Will monitor.
[2020-02-07] VITALS (8 sets, daily range): BP systolic 98–127; BP diastolic 42–83; PULSE 80–98; RESP 17–22; TEMP 36.4–36.8; O2SAT 93–96
--- NOTE | 2020-02-07 00:23 | PC.NURSE ---
Patient is currently resting with eyes closed. Will monitor.
--- NOTE | 2020-02-07 02:08 | PC.NURSE ---
Small amount of blood to dressing on right wrist. Dressing changed. Bruising around site, however no hematoma noted. VSS. Will monitor.
[2020-02-07 05:31] LABS: Blood Urea Nitrogen 30 mg/dL (8-23); Calcium 9.1 mg/dL (8.5-10.5); Carbon Dioxide 23 mmol/L (22-29); Chloride 101 mmol/L (98-107); Glucose 108 mg/dL (65-115); Osmolality Calculated 283 mOsm/kg (285-295); Sodium 133 mmol/L (136-145)
[2020-02-07 05:39] LABS: Anion Gap 13.4 (5-19); Potassium 4.4 mmol/L (3.5-5.1)
[2020-02-07 06:28] LABS: Glucose Point of Care 197 mg/dL (70-110)
[2020-02-07] MEDS: liothyronine 5 mcg Tablet 10 MCG PO (08:48)
[2020-02-07] MEDS: aspirin 81 mg EC Tablet PO (08:48)
[2020-02-07] MEDS: carvedilol 3.125 mg Tablet PO (08:48)
--- NOTE | 2020-02-07 09:12 | P.PN_ITS ---
Subjective Subjective: Interval history: s/p cath with normal coronaries. She is having occasional PVC's on telemetry. Right wrist hematoma Medications: Reviewed: Yes Medication Review Details: Current Medications Acetaminophen (Tylenol) 650 mg PO Q6H PRN PRN Reason: MILD PAIN Last Admin: 02/06/20 17:33 Dose: 650 mg Documented by: Al Hydrox/Mg Hydrox/Simethicone (Maalox) 30 ml PO Q15M PRN PRN Reason: INDIGESTION Alprazolam (Xanax) 0.25 mg PO TID PRN PRN Reason: ANXIETY Aspirin (Aspirin) 325 mg PO DAILY [facility] Last Admin: 02/06/20 09:03 Dose: 325 mg Documented by: Atorvastatin Calcium (Lipitor) 40 mg PO BEDTIME [facility] Last Admin: 02/05/20 20:32 Dose: 40 mg Documented by: Atropine Sulfate (Atropine) 0.5 mg IVP PRN PRN PRN Reason: Symptomatic bradycardia Carvedilol (Coreg) 3.125 mg PO BID [facility] Last Admin: 02/06/20 17:34 Dose: 3.125 mg Documented by: Dextrose (D50w) 25 ml IVP ONCE PRN; Protocol PRN Reason: hypoglycemia protocol Dextrose (D50w) 50 ml IVP PRN PRN; Protocol PRN Reason: hypoglycemia protocol Fentanyl (Sublimaze) 50 mcg IVP PRN PRN PRN Reason: Prior to sheath removal Glucagon (Glucagen) 1 mg IM ONCE PRN; Protocol PRN Reason: Adult Acute Hypoglycemia Prot. Dextrose (D5w) 500 mls @ 100 mls/hr IV ONCE PRN; Protocol PRN Reason: Adult Acute Hypoglycemia Prot Levofloxacin/Dextrose (Levaquin-D5w) 500 mg in 100 mls @ 100 mls/hr IV Q48H S ; Protocol Last Infusion: 02/05/20 12:29 Dose: Infused Documented by: Sodium Chloride (Sodium Chloride 0.9%) 1,000 mls @ 100 mls/hr IV .Q10H [facility] Last Admin: 02/06/20 12:30 Dose: 100 mls/hr Documented by: Insulin Aspart (Novolog) 0 unit SUBCUT WM&BEDTIME [facility]; Protocol Last Admin: 02/06/20 17:34 Dose: 4 unit Documented by: Liothyronine Sodium (Cytomel) 10 mcg PO DAILY [facility] Last Admin: 02/06/20 09:03 Dose: 10 mcg Documented by: Magnesium Hydroxide (Milk Of Magnesia) 30 ml PO DAILY PRN PRN Reason: CONSTIPATION Naloxone HCl (Narcan) 0.1 mg IVP Q2M PRN PRN Reason: RESPIRATORY RATE < 8/MIN Nitroglycerin (Nitrostat) 0.4 mg SUBLINGUAL Q5M PRN PRN Reason: CHEST PAIN Temazepam (Restoril) 15 mg PO BEDTIME PRN PRN Reason: INSOMNIA Vitals/I&O/Wt Last Vital Signs Temp 97.6 F 02/07/20 07:49 Pulse 88 02/07/20 07:49 Resp 20 H 02/07/20 07:49 BP 109/42 02/07/20 07:49 Pulse Ox 93 02/07/20 07:49 02/06/20 02/07/20 02/07/20 22:59 06:59 14:59 Intake Total 985 / 1085 300 / 1385 Output Total 800 / 1400 200 / 1600 Balance 185 / -315 100 / -215 Physical Exam Narrative: EXAM NARRATIVE: GENERAL: Obese lady lying in bed; in no acute distress HEENT: Extraocular movement intact. No pallor or icterus. NECK: central trachea, no JVD, appreciated. No carotid bruit. CARDIOVASCULAR SYSTEM: S1-S2 regular. No S3 or S4 present. Grade 2/6 SM+ in URSB no rubs or gallops. RESPIRATORY SYSTEM: Decreased bilateral air entry specially in the lower lung valentino posteriorly. Occasional crackles present. No wheezes or rubs heard. No use of accessory muscles. ABDOMEN: Soft, nontender and nondistended. Normal bowel sounds present. EXTREMITIES: No cyanosis. trace edema. No signs of chronic venous insufficiency. 2+ DP/PT Right wrist hematoma +, 1+ radial. 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 SKIN: Normal turgor and temperature. Data : 02/06/20 05:03 02/07/20 04:28 A&P Assessment and plan (1) Non-ST elevation IN (NSTEMI): Patient complains of chest pain on and off with shortness of breath with exertion over the last 2 weeks. She was able to tell me of at least 2 episodes of chest pain. Of note she is not a great historian and her EKG shows left bundle branch block (no priors available for comparison). -Baseline troponin T on arrival of 14 that increased to 38. -Her echocardiogram showed left ventricle ejection fraction of 30%, global hypokinesis more pronounced in the septum. Abnormal septal motion as well as at least moderate to severe aortic stenosis. -Started on aspirin and Lovenox. -Creatinine at 1.4 this morning. However BUN has increased to 37. Continue to monitor renal function and diurese her prior to proceeding with coronary angiogram. -This was discussed with patient and her granddaughter Carrie and they are agreeable. The risk of developing renal failure as well as risk of heart attack, stroke or with the procedure was discussed with the patient and they are willing to proceed with the same. Cath was done yesterday with normal coronaries. ostial RCA with catheter related spam. Peak to peak gradient for aortic valve ~44 mm Hg. This is consistent with severe . Further work up as an outpatient. -May be discharged later today. -continue ASA, statin. -Follow up with Ms. Waters in 1 week with [facility] and for site check. -f/u in 1 month with me in [facility]. Status: Acute (2) Congestive heart failure: Newly diagnosed congestive heart failure with ejection Fraction of 30%. -Not on SERGIO inhibitor or ARB or Arni given JAVIER. -restart coreg at 3.125 mg BID, spironolactone 12.5 mg daily starting in 1-2 days. -Plan to add ACEI as an outpatient. Status: Acute Qualifiers: Heart failure chronicity: acute on chronic Heart failure type: unspecified Qualified Code(s): I50.9 - Heart failure, unspecified (3) Diabetes mellitus with hyperglycemia, without long-term current use of insulin: Status: Chronic Qualifiers: Diabetes mellitus type: type 2 Qualified Code(s): E11.65 - Type 2 diabetes mellitus with hyperglycemia (4) Essential hypertension: BP soft Status: Chronic Additional A&P Information LBBB: No prior EKG available for comparison. Likely severe aortic stenosis : Valve visually appears to be more in severe category. The study was technically difficult but peak velocity was 3.4 m/second, mean gradient of about 29 mmHg, dimensionless valve index of 0. 21. JAVIER: Continue to closely monitor renal function. resolved Hypothyroidism Morbid obesity PNA Thank you for allowing me to participate in patient's care. Please feel free to call with questions or concerns. Attestations Medical Necessity Statement*: stable for discharge from cardiac standpoint. Coding Level of Care Code Acute Appellate Court Judge for Candice Ibarra Diagnoses Non-ST elevation IN (NSTEMI) I21.4 Congestive heart failure I50.9 Heart failure chronicity: acute on chronic Heart failure type: unspecified Diabetes mellitus with hyperglycemia, without long-term current use of insulin E11.65 Diabetes mellitus type: type 2 Essential hypertension I10
[2020-02-07 11:26] LABS: Glucose Point of Care 144 mg/dL (70-110)
[2020-02-07] MEDS: levofloxacin-dextrose 5 % 500 MG/100 ML PREMIX 100 MG IV (11:50)
--- NOTE | 2020-02-07 16:07 | P.DS_ITS ---
Discharge Providers Date of Admission: 02/03/20 16:13 Date of Discharge: February 07, 2020 Attending Provider at Admission: Umer Yu MD Attending Provider at Discharge: Brandon Barksdale Primary Care Provider: YOBANI Chandler Diagnoses at Discharge Discharge Diagnosis (1) Non-ST elevation MD (NSTEMI): Status: Acute (2) Congestive heart failure: Status: Acute Qualifiers: Heart failure chronicity: acute on chronic Heart failure type: unspecified Qualified Code(s): I50.9 - Heart failure, unspecified (3) Diabetes mellitus with hyperglycemia, without long-term current use of insulin: Status: Chronic Qualifiers: Diabetes mellitus type: type 2 Qualified Code(s): E11.65 - Type 2 diabetes mellitus with hyperglycemia (4) Essential hypertension: Status: Chronic Reason for Visit Reason for Visit: chest pain Hospital Course Hospital Course: 84 year old female patient who does not have previous history of CHF, carries diagnosis of hypothyroidism, diabetes, 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 Patient is stating that her symptoms started about a month ago, she was getting shortness of breath mainly on exertion, gradually her shortness of breath has worsened, now she experiencing orthopnea, PND. She has been noticing abdominal distention as well. Denying constipation, dysuria, chest pain, fever, nausea or vomiting. She is not a good historian. Diagnostics in the ER revealed CHF, D-dimer of 1.26, CTA rule out PE, chest imaging consistent with cardiomegaly, pleural effusion, pulmonary edema, at the time of evaluation, she was saturating well on 2 L nasal cannula, tachycardic, tachypneic normotensive, right leg swelling greater than left. EKG shows incomplete left bundle branch block, left axis deviation, sinus tachycardia I called [facility] to get the report, nursing staff is endorsing that she has been very tachycardic and tachypneic and complained about chest discomfort at the facility that so she was sent to the hospital. She walks on her own, eats adequately, independently on a daily basis, does not have previous diagnosis of CHF. No fever was noticed at the facility. Upon admission to the hospital patient was seen by cardiology. She was taken for a cardaic catheterization. This study did not show any obstructing coronary disease. Patient was additionally found to have acute renal failure and hyponatremia wh ich was also negative. Physical Exam Narrative: EXAM NARRATIVE: Alert, awake and oriented x 3 HENMT: COMMON NORMALS: normocephalic HEAD & SCALP: normocephalic Neck/C-Spine: COMMON NORMALS: no JVD Chest: COMMONS NORMALS: normal inspection of the chest CHEST: Yes Symmetrical chest wall rise Resp: COMMON NORMALS: normal respiratory effort Cardio: COMMON NORMALS: no JVD, regular rhythm, S1 normal heart sound present and S2 normal heart sound present RHYTHM: regular rhythm HEART SOUNDS: S1 normal heart sound present and S2 normal heart sound present GI: COMMON NORMALS: Normal to inspection, nondistended, normoactive bowel sounds present and Soft to palpation PALPATION: Yes Soft to palpation Extremity: COMMON NORMALS: normal to inspection Discharge Data Data Completed and Pending: Completed Studies During Hospitalization Category Date Time Status CT angio chest PE protcl [id number] Urge nt Cat Scan 02/03/20 00:45 Completed XR chest 1V paul ble [id number] Routine Exams 02/05/20 10:24 Completed XR chest 1V paul ble [id number] Stat Exams 02/02/20 23:37 Completed CV echo complete* [id number] Routine Ultrasound 02/03/20 02:54 [place] [id number] Routin e Ultrasound 02/03/20 03:42 Completed US renal BI* [id number] Routine Ultrasound 02/03/20 10:23 Completed Pending at discharge Category Date Time Status 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 Urgent Exams 02/06/20 10:00 Taken Blood Culture Sta t Lab 02/03/20 01:05 Results Labs from last 24 hours 02/07/20 02/07/20 02/07/20 11:05 06:22 04:28 Sodium 133 L Potassium 4.4 Chloride 101 Carbon Dioxide 23 Anion Gap 13.4 BUN 30 H Creatinine 0.9 GFR Calculation Not Reportable Glucose 108 POC Glucose 144 197 Calculated Osmolal ity 283 L Calcium 9.1 02/06/20 02/06/20 19:54 16:25 Sodium Potassium Chloride Carbon Dioxide Anion Gap BUN Creatinine GFR Calculation Glucose POC Glucose 354 147 Calculated Osmolal ity Calcium Vitals: Last Vital Signs Temp 98.3 F 02/07/20 11:13 Pulse 93 02/07/20 13:19 Resp 20 H 02/07/20 11:13 BP 100/46 02/07/20 11:13 Pulse Ox 95 02/07/20 13:19 Discharge Plan Discharge Patient Disposition: Xfer SNF Condition: Stable Prescriptions: New atorvastatin 40 mg Tablet 20 mg PO BEDTIME 30 Days Qty: 30 RF: 0 aspirin 81 mg Tablet,Delayed Release (Dr/Ec) 81 mg PO DAILY 30 Days Qty: 30 RF: 0 carvedilol 3.125 mg Tablet 3.125 mg PO BID 30 Days Qty: 60 RF: 0 Continued acetaminophen [Mapap Arthritis Pain] 650 mg tablet extended release 650 mg PO BID PRN (Reason: pain) RF: 0 (DME) diaper,brief,adult,disposable Misc See Rx Instructions .ROUTE .MEDSUPPLY Qty: 180 RF: 12 liothyronine 5 mcg tablet 10 mcg PO DAILY Qty: 60 RF: 5 Ozempic 0.25 mg or 0.5 mg(2 mg/1.5 mL) pen injector 0.25 mg SUBCUT .weekly Qty: 1.5 RF: 2 Aspercreme (lidocaine) 1 applic topical TID PRN (Reason: Pain) RF: 0 Discontinued guaifenesin [Tussin] 100 mg/5 mL liquid 200 mg PO Q4H PRN (Reason: Cough) RF: 0 lisinopril 5 mg tablet 5 mg PO DAILY RF: 0 spironolactone 25 mg tablet 25 mg PO DAILY RF: 0 carvedilol 6.25 mg tablet 6.25 mg PO BID RF: 0 Discharge Orders: Discharge Order (Routine); Ordered 02/07/20 Ordered By: Brandon Barksdale Referrals: Adam Meléndez, LABOR RELATIONS SPECIALIST-C [Primary Care Provider] - (Please, follow-up with with Melissa Rodríguez (Adam Meléndez is out of office) on Feb.14 at 10:00a.m. If you have any questions or need to reschedule. Please call ) Discharge Diet: Cardiac Discharge Activity: Increase activity as tolerated Patient Instructions: Aspirin (By mouth), Atorvastatin (By mouth), Carvedilol (By mouth), Myocardial Infarction (DC), Left Heart Catheterization (DC), Right Heart Catheterization (DC), CHF Stoplight, Post Angiogram Home Care Instructions Activity Restrictions/Additional Instructions: Fall Precautions Discharge Attestations Time Spent in Discharge Care*: greater than 30 min Quality Metrics Clinical Quality Measures During this hospital stay, did patient experience: None Coding Level of Care Code Acute Metal Reed Tuner for Candice Fwsusan Diagnoses Non-ST elevation MD (NSTEMI) I21.4 Congestive heart failure I50.9 Heart failure chronicity: acute on chronic Heart failure type: unspecified Diabetes mellitus with hyperglycemia, without long-term current use of insulin E11.65 Diabetes mellitus type: type 2 Essential hypertension I10
[2020-02-07 16:32] LABS: Glucose Point of Care 145 mg/dL (70-110)
--- NOTE | 2020-02-07 17:48 | PC.NURSE ---
Patient discharge to [facility] assisted living, patient sent with all belongings as well discharge paperwork. patient alert oriented and in stable condition. patient assisted to wheel chair and left with transport staff.
== END 2020-02-07 17:50 | disposition skilled nursing facility (03) | DRG 280 ==
LOC: ER 02-03 02:40 → CSU 02-03 07:19
PROVIDERS: Family Medicine; Internal Medicine; Internal Medicine Cardiovascular Disease; Admitting Provider Internal Medicine; Emergency Provider Emergency Medicine; PCP Nurse Practitioner; Visit Provider Hospitalist
DX: I21.4 Non-ST elevation (NSTEMI) myocardial infarction (principal); I50.41 Acute combined systolic (congestive) and diastolic (congestive) heart failure; I13.0 Hypertensive heart and chronic kidney disease with heart failure and stage 1 through stage 4 chronic kidney disease, or unspecified chronic kidney disease; E66.2 Morbid (severe) obesity with alveolar hypoventilation; Z68.41 Body mass index [BMI] 40.0-44.9, adult; E87.1 Hypo-osmolality and hyponatremia; N17.9 Acute kidney failure, unspecified; N39.0 Urinary tract infection, site not specified; I35.0 Nonrheumatic aortic (valve) stenosis; E03.9 Hypothyroidism, unspecified; E11.65 Type 2 diabetes mellitus with hyperglycemia; H40.9 Unspecified glaucoma; H54.40 Blindness, one eye, unspecified eye; N18.9 Chronic kidney disease, unspecified; M79.89 Other specified soft tissue disorders; I44.7 Left bundle-branch block, unspecified
CPT/HCPCS: 12345; 36415; 36416; 71045; 71275; 76770; 80048; 80053; 80061; 81001; 82962; 83036; 83605; 83735; 83880; 84443; 84484; 85025; 85378; 87040; 87205; 87426; 93005; 93306; 93452; 93970; 94640; 94660; 96372; 96375; 99283; C1769; C1887; C1894; G0378; J1100; J1644; J1650; J1815; J1940; J1956; J2250; J3010; J3490; J3535; J7030; J7050; Q9967